=== PATIENT | male | born 1945 | race Caucasian/White ===

== ENCOUNTER 2021-01-02 07:30 | Inpatient (IN) | payer BC ==
[2020-12-26 12:25] LABS: BASOPHILS % (AUTO) 0.3 % (0-1); EOSINOPHILS # (AUTO) 0.1 X10'3 (0-0.9); EOSINOPHILS % (AUTO) 1.9 % (0-6); LYMPHOCYTES # (AUTO) 0.8 X10'3 (1.1-4.8); LYMPHOCYTES % (AUTO) 12.8 % (21-51); MEAN CORPUSCULAR HEMOGLOBIN 31.5 PG (27.0-31.0); MEAN CORPUSCULAR HGB CONC 32.5 g/dL (33.0-36.5); MEAN PLATELET VOLUME 9.6 FL (7.4-10.4); MONOCYTES # (AUTO) 0.9 X10'3 (0-0.9); MONOCYTES % (AUTO) 14.1 % (2-12); NEUTROPHILS # (AUTO) 4.7 X10'3 (1.8-7.7); NEUTROPHILS % (AUTO) 70.9 % (42-75); PRE OP HEMATOCRIT 46.3 % (42.0-52.0); PRE OP PLATELET COUNT 187 X10'3 (140-440); RED BLOOD COUNT 4.77 X10'6 (4.70-6.10); RED CELL DISTRIBUTION WIDTH 14.6 % (11.5-14.5)
[2020-12-26 12:34] LABS: PRE OP INR 1.1 INR; PRE OP PROTIME 11.4 SECONDS (9.0-12.0)
[2020-12-26 12:39] LABS: ALBUMIN 3.6 G/DL (3.4-5.0); ALBUMIN/GLOBULIN RATIO 0.9 (1.1-1.5); ALKALINE PHOSPHATASE 102 IU/L (46-116); BLOOD UREA NITROGEN 19 MG/DL (7-18); BUN/CREATININE RATIO 17.3 (5.4-32.0); CALCIUM 9.4 MG/DL (8.5-10.1); CHLORIDE 105 MMOL/L (99-107); PRE OP ALT 16 U/L (30-65); PRE OP ANION GAP 6 (8-16); PRE OP AST 17 U/L (10-37); PRE OP BILIRUB, TOTAL 0.7 MG/DL (0.0-1.0); PRE OP GLUCOSE 93 MG/DL (70-104); PRE OP POTASSIUM 4.3 MMOL/L (3.4-5.1); PRE OP SODIUM 141 MMOL/L (135-145); TOTAL CARBON DIOXIDE 30.5 MMOL/L (24-32); TOTAL PROTEIN 7.5 G/DL (6.4-8.2); eGFR 65 ML/MIN
[~2021-01-02] VITALS: Ht 175.3 cm; Wt 136.1 kg
[~2021-01-02 07:30] MED LIST: ALBU8HFA PO; APIX5TAB3 PO; CELE-193 PO; DIGO125T PO; METO200T49 PO; OMEP20TA23 PO; POTA10CA44 PO; ROSU20TA2 PO; VALS160T2 PO
[2021-01-02] MEDS ORDERED: FURO40TA4 PO (10:49)
[2021-01-03] VITALS (18 sets, daily range): BP systolic 121–196; BP diastolic 67–113
[2021-01-03] MEDS ORDERED: ringers solution, lacted 1,000 ML IV SCH ×2 (05:00→09:20)
[2021-01-03] MEDS ORDERED: ceFAZolin inj. 3,000 MG in normal saline 100ml IV soln 100 ML IV ONE (05:30)
[2021-01-03] MEDS ORDERED: DOCUMENT DATE & TIME OF BETA-BLOCKER PO ONE (05:30)
[2021-01-03] MEDS ORDERED: vancomycin 1,500 MG in NS 300ml IV soln IV ONE (05:30)
[2021-01-03] MEDS ORDERED: famotidine 20mg tablet PO ONE (05:30)
[2021-01-03] MEDS ORDERED: albuterol 2.5 MG/3 ML nebule NEB ONE (09:05)
[2021-01-03] MEDS ORDERED: meperidine/PF 25mg/ml syringe IV PRN ×3 (09:20)
[2021-01-03] MEDS ORDERED: proCHLORperazine 10 MG/2 ml inj IV PRN (09:20)
[2021-01-03] MEDS ORDERED: morphine 2 MG/ML inj. syringe IV PRN (09:20)
[2021-01-03] MEDS ORDERED: morphine 4 MG/ML inj SYRINge IV PRN (09:20)
[2021-01-03] MEDS ORDERED: ondansetron/PF 4mg/2ml inj IV PRN ×2 (09:20→14:10)
[2021-01-03] MEDS ORDERED: MIDAZolam 1 MG/ML 5ML VIAL ONE (09:56)
[2021-01-03] MEDS ORDERED: fentaNYL/PF 50MCG/1 ML 2ML syringe ONE (09:56)
[2021-01-03] MEDS ORDERED: ROPIVAcaine 0.5% (5mg/ml) 30ml vial ONE (10:00)
[2021-01-03] MEDS ORDERED: ketorolac trometh. 30mg/ml inj. ONE (10:00)
[2021-01-03] MEDS ORDERED: diphenhydrAMINE 50 mg/ml inj ONE (10:52)
[2021-01-03] MEDS ORDERED: propofol inj 20 ML IV ONE (11:47)
[2021-01-03] MEDS ORDERED: phenylephrine 10mg/ml inj. ONE (12:19)
[2021-01-03] MEDS ORDERED: metoprolol tartrate 1mg/ml inj IV ONE (12:19)
[2021-01-03] MEDS ORDERED: ROPIVAcaine 0.2%/PF PUMP/bolus 545 ML ADDCANAL SCH (13:40)
[2021-01-03] MEDS ORDERED: ROPIVAcaine 0.2% (10 MG/5 ML) BOLUS INJECTION ADDCANAL PRN (13:40)
[2021-01-03] MEDS ORDERED: diphenhydrAMINE 25mg capsule PO PRN ×2 (14:10)
[2021-01-03] MEDS ORDERED: HYDROmorphone inj. 0.5 MG/0.5 ML DISP.SYRIN IV PRN (14:10)
[2021-01-03] MEDS ORDERED: HYDROmorphone 1 mg/ml syringe IV PRN (14:10)
[2021-01-03] MEDS ORDERED: bisacodyl 10mg suppository rectal RC PRN (14:10)
[2021-01-03] MEDS ORDERED: acetaminophen 325mg tablet PO PRN (14:10)
[2021-01-03] MEDS: potassium cl 20mEq in 1/2 NS 1,000 ML IV SCH (14:10)
--- NOTE | 2021-01-03 14:25 | NUR ---
ADMITTED TO PACU FROM OR ACCOMPANIED BY ANESTHESIA. INTIAL PHYSICAL ASSESSMENT DONE AND RECORDED. REPORT RECEIVED FROM ANESTHESIA.
--- NOTE | 2021-01-03 15:10 | NUR ---
Received report from VELIA Read in recovery. awaiting patient arrival.
--- NOTE | 2021-01-03 15:15 | NUR ---
PACU DISCHARGE CRITERIA MET, REPORT GIVEN TO FLOOR. DENIES PAIN OR DISCOMFORT, TRANSFERRED TO ROOM IN STABLE GOOD CONDITION. SURGICAL SITE DRESSING NOTED TO BE SATURATED ON ARRIVAL TO FLOOR. DR DIEHL CONTACTED ORDERS TO CHANGE DRESSING. DRESSING TAKE DOWN TO INCISIONAL SITE, CONSTANT WEEPING OF BLOOD FROM INCISION. REDRESSED WITH ABD AND ISLAND DRESSING, MORE ABD'S PLACED ON TOP OF ISLAND DRESSING AND SECURED WITH CHARLES WRAP. HAND OFF TO GRZEGORZ GUNN. DR DIEHL UPDATED
--- NOTE | 2021-01-03 15:46 | NUR ---
Patient arrived to the floor. BP increased. His dressing was saturated with fresh blood. installation drafter called Zhen he said to take down dressing and redress. This was completed, patients dressing is clean dry and intact. will continue to monitor for changes.
--- NOTE | 2021-01-03 16:27 | NUR ---
PAGER ID: [phone] MESSAGE: Karen Alonso1B. Fontaine [phone]
[2021-01-03] MEDS ORDERED: diltiazem 5mg/ml 5ml inj. IV ONE (16:40)
--- NOTE | 2021-01-03 16:46 | NUR ---
Acting as resource i have assumed patient care and sent Mounika GUNN on a break.
[2021-01-03] MEDS: oxyCODONE IR 5mg (immed. release) tablet PO PRN (16:58)
--- NOTE | 2021-01-03 17:19 | NUR ---
Received patient report from VELIA Skinner. Awaiting patient arrival to room 3616Y.
--- NOTE | 2021-01-03 17:20 | NUR ---
gave report to VELIA Adame. gathering patients belongings and transferring him to room 8969
--- NOTE | 2021-01-03 17:42 | NUR ---
Patient transferred to room 3027A. All belongings transferred with patient. Receiving RN's Wendi and Max at bedside. Patients dressing clean dry intact, OnQ set at 8.
--- NOTE | 2021-01-03 18:00 | NUR ---
Patient in room PCU 3027. I have received report from gayla alguna and had the opportunity to ask questions and assume patient care.
[2021-01-03] MEDS: ceFAZolin/D5W- 1GM premix 50 ML IV SCH (18:07)
[2021-01-03] MEDS: diltiazem-NS 100mg/100ml 100 ML IV PRN (18:08)
--- NOTE | 2021-01-03 18:32 | NUR ---
Orders for chest xray, echocardiogram, 40mg IV BID of lasix put in per Dr. Nguyen.
--- NOTE | 2021-01-03 18:33 | NUR ---
Problems reprioritized. Patient report given, questions answered & plan of care reviewed with VELIA Narayan. Patient stable at transfer of care. Cardizem gtt started and cardizem push given prior to transfer of care.
--- NOTE | 2021-01-03 18:48 | NUR ---
Orientee Medication Administration: For this medication-pass time frame, all medication were reviewed, dispensed, administered and documented per hospital policy by VELIA Sierra.
--- NOTE | 2021-01-03 18:48 | NUR ---
Orientee documentation: I have reviewed and agree with all interventions, assessments performed and documented by VELIA Sierra.
[2021-01-03] MEDS: apixaban 5mg tablet PO SCH (20:00)
[2021-01-03] MEDS ORDERED: vancomycin/NS 1 GM ADD-VANTAGE 250 ML IV SCH (20:00)
[2021-01-03] MEDS: sennosides 8.6mg tablet PO SCH (21:00)
[2021-01-03] MEDS: furosemide 40mg/4ml inj IV SCH (21:28)
[2021-01-03] MEDS: atorvastatin 20mg tablet PO SCH (21:30)
[2021-01-03] MEDS: losartan 50mg tablet PO SCH (21:30)
[2021-01-03] MEDS: acetaminophen 325mg tablet PO SCH (21:31)
[2021-01-03] MEDS: celeCOXIB 100mg capsule PO SCH (21:31)
[2021-01-03] MEDS: metoprolol succinate 25mg (24-HOUR) SR. Tablet PO SCH (21:32)
[2021-01-04] VITALS (11 sets, daily range): BP systolic 115–139; BP diastolic 64–115
[2021-01-04] MEDS: ceFAZolin/D5W- 1GM premix 50 ML IV SCH (00:03)
--- NOTE | 2021-01-04 00:18 | NUR ---
ekg was done with troponins, pt did not have any symptoms
--- NOTE | 2021-01-04 01:15 | NUR ---
pt attempted to get out of bed. rn stopped pt and repositioned pt in bed and put bed alarm. pt woke up and wanted to use the bathroom and forgot he had a wright in
[2021-01-04] MEDS: acetaminophen 325mg tablet PO SCH ×4 (01:21→23:10)
[2021-01-04] MEDS: potassium cl 20mEq in 1/2 NS 1,000 ML IV SCH (03:05)
[2021-01-04 03:27] LABS: BASOPHILS % (AUTO) 0 % (0-1); EOSINOPHILS % (AUTO) 0 % (0-6); HEMATOCRIT 32.2 % (42.0-52.0); HEMOGLOBIN 10.6 g/dl (14.0-17.9); LYMPHOCYTES # (AUTO) 0.3 X10'3 (1.1-4.8); MEAN CORPUSCULAR HEMOGLOBIN 32.1 PG (27.0-31.0); MEAN CORPUSCULAR HGB CONC 33.1 g/dL (33.0-36.5); MEAN CORPUSCULAR VOLUME 96.9 FL (78-98); MEAN PLATELET VOLUME 9.2 FL (7.4-10.4); MONOCYTES # (AUTO) 1.5 X10'3 (0-0.9); MONOCYTES % (AUTO) 13.8 % (2-12); NEUTROPHILS # (AUTO) 8.8 X10'3 (1.8-7.7); NEUTROPHILS % (AUTO) 83.2 % (42-75); PLATELET COUNT 149 X10'3 (140-440); RED BLOOD COUNT 3.32 X10'6 (4.70-6.10); RED CELL DISTRIBUTION WIDTH 14.7 % (11.5-14.5); WHITE BLOOD COUNT 10.6 X10'3 (4.5-11.0)
[2021-01-04] MEDS: oxyCODONE IR 5mg (immed. release) tablet PO PRN ×2 (03:33→11:23)
[2021-01-04] MEDS: diltiazem-NS 100mg/100ml 100 ML IV PRN (03:34)
[2021-01-04 03:39] LABS: ALBUMIN 2.5 G/DL (3.4-5.0); ANION GAP 7 (8-16); BLOOD UREA NITROGEN 14 MG/DL (7-18); BUN/CREATININE RATIO 13.3 (5.4-32.0); CALCIUM 8.1 MG/DL (8.5-10.1); CHLORIDE 105 MMOL/L (99-107); CREATININE 1.05 MG/DL (0.60-1.10); GLUCOSE 116 MG/DL (70-104); POTASSIUM 4.9 MMOL/L (3.5-5.1); SODIUM 140 MMOL/L (135-145); TOTAL CARBON DIOXIDE 28.4 MMOL/L (24-32); eGFR 69 ML/MIN
--- NOTE | 2021-01-04 05:59 | NUR ---
Problems reprioritized. Patient report given, questions answered & plan of care reviewed with gayla laguna.
--- NOTE | 2021-01-04 06:14 | NUR ---
Problems reprioritized. Patient report given, questions answered & plan of care reviewed with kiet laguna.
--- NOTE | 2021-01-04 06:37 | NUR ---
Patient in room U 3027. I have received report from VELIA Narayan and had the opportunity to ask questions and assume patient care. Patient awake in bed and in no acute distress.
[2021-01-04] MEDS: apixaban 5mg tablet PO SCH ×2 (07:48→23:10)
[2021-01-04] MEDS: potassium Cl 20 mEq SR tablet PO SCH (07:48)
[2021-01-04] MEDS: celeCOXIB 100mg capsule PO SCH ×2 (07:49→23:10)
[2021-01-04] MEDS: pantoprazole 40mg Tablet.DR PO SCH (07:49)
[2021-01-04] MEDS: furosemide 40mg/4ml inj IV SCH (07:51)
[2021-01-04] MEDS ORDERED: furosemide 40mg tablet PO SCH (08:00)
[2021-01-04] MEDS ORDERED: digoxin 125mcg (0.125mg) tablet PO SCH (08:00)
[2021-01-04] MEDS ORDERED: iohexol 350MG/ML 100ml bottle IV ONE (09:29)
[2021-01-04] MEDS ORDERED: normal saline 1000ml 1,000 ML IV SCH (09:50)
[2021-01-04] MEDS: ROPIVAcaine 0.2%/PF PUMP/bolus 545 ML ADDCANAL SCH (11:29)
[2021-01-04] MEDS ORDERED: amiodarone 200mg tablet PO SCH (11:30)
--- NOTE | 2021-01-04 11:32 | NUR ---
Orders for amiodarone 400mg BID first dose now, stop cardizem gtt two hours after administration of PO amiodarone, and social services director consult put in per Dr. Nguyen.
--- NOTE | 2021-01-04 11:48 | NUR ---
Joint Surgery Consult: Pt s/p R knee surgery this admit and seen by RD for written/verbal high protein ed w/ RD contact information provided. Pt reports good appetite and requests yogurt TIDWM; dietary notified. RD encouraged pt to contact dietitian's office if further questions/concerns. Addendum: 01/04/21 at [address] Amended: Links added.
[2021-01-04 13:22] LABS: HEMATOCRIT 32.1 % (42.0-52.0); HEMOGLOBIN 10.6 g/dl (14.0-17.9); MEAN CORPUSCULAR HEMOGLOBIN 32.4 PG (27.0-31.0); MEAN CORPUSCULAR VOLUME 98.2 FL (78-98); MEAN PLATELET VOLUME 9.4 FL (7.4-10.4); PLATELET COUNT 162 X10'3 (140-440); RED BLOOD COUNT 3.26 X10'6 (4.70-6.10); RED CELL DISTRIBUTION WIDTH 14.6 % (11.5-14.5); WHITE BLOOD COUNT 9.2 X10'3 (4.5-11.0)
--- NOTE | 2021-01-04 14:47 | NUR ---
Paged Dr. Nguyen regarding patient being agitated. PAGER ID: [phone] MESSAGE: [id number]. Tino Almanzar. Patient becoming aggressive. May I order ativan? Thank you. gayla GUNN x [phone] Addendum: 01/04/21 at 1448 by Gayla Maldonado RN Dr. Nguyen called back and gave orders for haldol and ativan.
[2021-01-04] MEDS ORDERED: haloperidol lactate 5mg/ml inj IM ONE (14:50)
[2021-01-04] MEDS: LORazepam 2 mg/ml vial IV PRN (16:33)
--- NOTE | 2021-01-04 16:43 | NUR ---
orientee documentation: I have reviewed and agree with all interventions, assessments performed and documented by VELIA Tyler.
--- NOTE | 2021-01-04 16:44 | NUR ---
Orientee Medication Administration: For this medication-pass time frame, all medication were reviewed, dispensed, administered and documented per hospital policy by VELIA Tyler.
--- NOTE | 2021-01-04 17:19 | NUR ---
Paged Dr. Nguyen regarding patients heart rate trending up PAGER ID: [phone] MESSAGE: [id number]. Tino Almanzar. Patient heart rate trending back up into 130s-140s after turning off cardizem gtt. Would you like me to restart gtt? Thank you. Wendi GUNN x [phone] Addendum: 01/04/21 at 1722 by Wendi Maldonado RN Dr. Nguyen called back and will start patient on amiodarone gtt.
[2021-01-04] MEDS ORDERED: amiodarone 150mg/dext, iso-os 100 ML IV ONE (17:45)
--- NOTE | 2021-01-04 18:00 | NUR ---
Paged Dr. Nguyen PAGER ID: [phone] MESSAGE: RE Yohan Jiménez 3015 A, Patient is combative and restless attempting to get out of bed pulled out an IV line. could we get an order for restraint's? Thank you. VELIA Tyler Tele ext [phone]
--- NOTE | 2021-01-04 18:24 | NUR ---
Problems reprioritized. Patient report given, questions answered & plan of care reviewed with VELIA Mcmullen. Patient stable at transfer of care.
--- NOTE | 2021-01-04 18:43 | NUR ---
Patient in room PCU 3012. I have received report from Wendi GUNN and Jayson GUNN and had the opportunity to ask questions and assume patient care.
--- NOTE | 2021-01-04 19:16 | NUR ---
Doctor paged for restraints PAGER ID: [phone] MESSAGE: Re: Tino Almanzar 75M rm [id number] here for total knee replacement. Patient has become increasing agitated and pulling at lines despite Ativan. May we have an order for restraints? Thank you. Kemi Castaneda.
--- NOTE | 2021-01-04 20:48 | NUR ---
Doctor Paged PAGER ID: [phone] MESSAGE: Re: Tino Almanzar 75M rm [id number]. Total knee replacement. Pt confused & agitated. R leg reddened & swollen. Pt SOB using abdominal muscles. HR 120-130 Afib, BP: 125/72, SpO2 96% on 2L NC, RR 22-29. Pt is clammy. Please call me? Kemi [phone]
--- NOTE | 2021-01-04 21:07 | NUR ---
Paged respiratory ABG and BiPap needed stat rm [id number] Thank you
--- NOTE | 2021-01-04 21:07 | NUR ---
Spoke to Dr. Avila about patient's condition, ordered STAT ABG, CMP/CBC, chest luis alberto, and BiPap.
[2021-01-04 21:28] LABS: ABG BASE EXCESS -1.1 mmol/L (-2.0-2.0); ABG HCO3 25.8 mmol/L (22.0-26.0); ABG OXYGEN SATURATION 92.7 % (94-97); ABG PCO2 (T) 53.8 mmHg (35.0-48.0); ABG PO2 (T) 68.1 mmHg (75.0-100.0); ALLEN'S TEST Modified; FCOHb 0.5 % (0.0-3.9); FLOW 2 L/min; FMetHb 0.3 % (0.0-1.5); PATIENT TEMPERATURE 36.9
--- NOTE | 2021-01-04 21:47 | NUR ---
Page Doctor PAGER ID: [phone] MESSAGE: Re: Tino Almanzar 75M rm [id number]. ABG have resulted. CXR completed/pending and CBC/CMP pending. Pt is now on BiPap. Kemi [phone].
[2021-01-04 22:03] LABS: BASOPHILS # (AUTO) 0.1 X10'3 (0-0.2); BASOPHILS % (AUTO) 0.3 % (0-1); EOSINOPHILS # (AUTO) 0.2 X10'3 (0-0.9); EOSINOPHILS % (AUTO) 1.1 % (0-6); HEMATOCRIT 29.6 % (42.0-52.0); HEMOGLOBIN 9.5 g/dl (14.0-17.9); LYMPHOCYTES # (AUTO) 0.4 X10'3 (1.1-4.8); LYMPHOCYTES % (AUTO) 2.5 % (21-51); MEAN CORPUSCULAR HEMOGLOBIN 32.3 PG (27.0-31.0); MEAN CORPUSCULAR HGB CONC 32.3 g/dL (33.0-36.5); MEAN CORPUSCULAR VOLUME 100.2 FL (78-98); MEAN PLATELET VOLUME 8.8 FL (7.4-10.4); MONOCYTES # (AUTO) 2.7 X10'3 (0-0.9); MONOCYTES % (AUTO) 17.1 % (2-12); NEUTROPHILS # (AUTO) 12.4 X10'3 (1.8-7.7); PLATELET COUNT 145 X10'3 (140-440); RED BLOOD COUNT 2.95 X10'6 (4.70-6.10); RED CELL DISTRIBUTION WIDTH 14.9 % (11.5-14.5); WHITE BLOOD COUNT 15.7 X10'3 (4.5-11.0)
[2021-01-04 22:09] LABS: ALANINE AMINOTRANSFERASE 11 U/L (12-78); ALBUMIN 2.6 G/DL (3.4-5.0); ALBUMIN/GLOBULIN RATIO 0.8 (1.1-1.5); ALKALINE PHOSPHATASE 63 IU/L (46-116); ANION GAP 6 (8-16); ASPARTATE AMINO TRANSFERASE 20 U/L (10-37); BILIRUBIN,TOTAL 0.7 MG/DL (0.1-1.0); BLOOD UREA NITROGEN 22 MG/DL (7-18); BUN/CREATININE RATIO 15.6 (5.4-32.0); CALCIUM 8.6 MG/DL (8.5-10.1); CHLORIDE 106 MMOL/L (99-107); CREATININE 1.41 MG/DL (0.60-1.10); GLUCOSE 97 MG/DL (70-104); POTASSIUM 5.1 MMOL/L (3.5-5.1); SODIUM 140 MMOL/L (135-145); TOTAL CARBON DIOXIDE 28.5 MMOL/L (24-32); TOTAL PROTEIN 5.7 G/DL (6.4-8.2); eGFR 49 ML/MIN
[2021-01-04] MEDS: amiodarone/D5 360MG/200ML BAG 200 ML IV SCH (22:23)
[2021-01-04 22:29] LABS: TOTAL CELLS COUNTED 100
--- NOTE | 2021-01-04 22:29 | NUR ---
Paged Doctor regarding PO meds PAGER ID: [phone] MESSAGE: Re: Tino Almanzar 75M [id number]. Now on BiPap, still confused. Pt has several PO meds due tonight, Eliquis, Toprol, Cozaar, Lipitor, & celebrex. Are there IV/SQ alternatives for these medications we can switch to? Kemi [phone].
[2021-01-04 22:30] LABS: PLATELET ESTIMATE NORMAL
[2021-01-04] MEDS ORDERED: methylPREDNISolone sod succ 125mg/2ml vial IV ONE (22:40)
[2021-01-04] MEDS ORDERED: ipratropium/albuterol 3ml nebule NEB PRN (22:40)
[2021-01-04] MEDS ORDERED: vancomycin/NS 1 GM ADD-VANTAGE 250 ML IV SCH (22:46)
[2021-01-04] MEDS: ipratropium/albuterol 3ml nebule NEB SCH (23:03)
--- NOTE | 2021-01-04 23:04 | NUR ---
Spoke to Dr. Avila regarding PO medications, Dr. Avila does not want to switch to alternative routes of administration. Evening medications non-admin, patient not able to swallow due to BiPap and confusion. Concerned for risk of aspiration.
[2021-01-04] MEDS: losartan 50mg tablet PO SCH (23:10)
[2021-01-04] MEDS: metoprolol succinate 25mg (24-HOUR) SR. Tablet PO SCH (23:10)
[2021-01-04] MEDS: atorvastatin 20mg tablet PO SCH (23:10)
[2021-01-04] MEDS: sennosides 8.6mg tablet PO SCH (23:10)
--- NOTE | 2021-01-04 23:47 | NUR ---
Dr. Nguyen paged regarding blood cultures PAGER ID: [phone] MESSAGE: Re: Tino Almanzar 75M 3012A, here for total right knee. Do you want blood cultures before first dose antibiotic? Kemi [phone]
[2021-01-05] VITALS (9 sets, daily range): BP systolic 106–147; BP diastolic 58–94
--- NOTE | 2021-01-05 00:49 | NUR ---
While repositioning patient, he was found to have jasvir red blood oozing from right knee dressing and onto pillow. Called Dr. Fontaine and he advised a dressing change with pressure dressing and to place wound vac canister, machine, and sponges at the bedside and he will apply wound vac in the morning. Old dressing was saturated with blood. 2 gauze containers were placed against wound, held in place with island dressing. 2 more gauze containers were used on top of the island dressing and secured with foam tape. Tape was pulled tight to create pressure. Patient has strong pedal pulses on right and left feet. Right leg is reddened and swollen.
[2021-01-05 02:00] LABS: BASOPHILS % (AUTO) 0.3 % (0-1); EOSINOPHILS # (AUTO) 0.1 X10'3 (0-0.9); EOSINOPHILS % (AUTO) 0.8 % (0-6); HEMATOCRIT 27.5 % (42.0-52.0); LYMPHOCYTES # (AUTO) 0.2 X10'3 (1.1-4.8); LYMPHOCYTES % (AUTO) 1.2 % (21-51); MEAN CORPUSCULAR HEMOGLOBIN 32.2 PG (27.0-31.0); MEAN CORPUSCULAR HGB CONC 32.8 g/dL (33.0-36.5); MEAN CORPUSCULAR VOLUME 98.2 FL (78-98); MEAN PLATELET VOLUME 8.8 FL (7.4-10.4); MONOCYTES # (AUTO) 1.3 X10'3 (0-0.9); MONOCYTES % (AUTO) 9.9 % (2-12); NEUTROPHILS # (AUTO) 11.3 X10'3 (1.8-7.7); NEUTROPHILS % (AUTO) 87.8 % (42-75); PLATELET COUNT 144 X10'3 (140-440); RED BLOOD COUNT 2.81 X10'6 (4.70-6.10); RED CELL DISTRIBUTION WIDTH 14.9 % (11.5-14.5); WHITE BLOOD COUNT 12.8 X10'3 (4.5-11.0)
[2021-01-05] MEDS: acetaminophen 325mg tablet PO SCH ×3 (02:00→14:00)
[2021-01-05] MEDS: methylPREDNISolone sod succ/PF 40mg inj. IV SCH ×4 (02:18→21:09)
[2021-01-05 02:22] LABS: ALANINE AMINOTRANSFERASE 16 U/L (12-78); ALBUMIN 2.5 G/DL (3.4-5.0); ALBUMIN/GLOBULIN RATIO 0.8 (1.1-1.5); ALKALINE PHOSPHATASE 65 IU/L (46-116); ANION GAP 7 (8-16); ASPARTATE AMINO TRANSFERASE 22 U/L (10-37); BILIRUBIN,TOTAL 0.6 MG/DL (0.1-1.0); BLOOD UREA NITROGEN 25 MG/DL (7-18); BUN/CREATININE RATIO 17.4 (5.4-32.0); CHLORIDE 105 MMOL/L (99-107); CREATININE 1.44 MG/DL (0.60-1.10); GLUCOSE 110 MG/DL (70-104); PHOSPHORUS 3.9 MG/DL (2.3-4.5); POTASSIUM 5.1 MMOL/L (3.5-5.1); SODIUM 141 MMOL/L (135-145); TOTAL CARBON DIOXIDE 29.1 MMOL/L (24-32); TOTAL PROTEIN 5.5 G/DL (6.4-8.2); eGFR 48 ML/MIN
[2021-01-05] MEDS: piperacillin/tazo 3.375gm/50ml 50 ML IV SCH ×3 (02:22→16:13)
[2021-01-05] MEDS: amiodarone/D5 360MG/200ML BAG 200 ML IV SCH ×4 (03:27→18:30)
[2021-01-05] MEDS: ipratropium/albuterol 3ml nebule NEB SCH ×6 (03:39→23:00)
--- NOTE | 2021-01-05 06:33 | NUR ---
Problems reprioritized. Patient report given, questions answered & plan of care reviewed with Neeraj GUNN.
[2021-01-05 08:22] LABS: ABG BASE EXCESS -2.5 mmol/L (-2.0-2.0); ABG HCO3 23.8 mmol/L (22.0-26.0); ABG OXYGEN SATURATION 89.1 % (94-97); ABG PCO2 (T) 47.6 mmHg (35.0-48.0); ABG PO2 (T) 57.7 mmHg (75.0-100.0); ALLEN'S TEST POSITIVE; FCOHb 0.2 % (0.0-3.9); FMetHb 0.1 % (0.0-1.5); FO2Hb 88.8 % (94-97); TOTAL HEMOGLOBIN 10.2 G/dl (14.0-18.0)
[2021-01-05] MEDS: potassium Cl 20 mEq SR tablet PO SCH (08:49)
[2021-01-05] MEDS: celeCOXIB 100mg capsule PO SCH ×2 (08:49→21:06)
[2021-01-05] MEDS: apixaban 5mg tablet PO SCH ×2 (08:50→21:07)
[2021-01-05] MEDS: pantoprazole 40mg Tablet.DR PO SCH (08:57)
[2021-01-05] MEDS: ROPIVAcaine 0.2%/PF PUMP/bolus 545 ML ADDCANAL SCH (13:10)
[2021-01-05] MEDS ORDERED: ondansetron 4mg rapidly disintigrating tab PO PRN (14:15)
[2021-01-05] MEDS: vancomycin/NS 1 GM ADD-VANTAGE 250 ML IV SCH (15:30)
--- NOTE | 2021-01-05 18:30 | NUR ---
Patient in room PCU 3012. I have received report from Neeraj GUNN and had the opportunity to ask questions and assume patient care.
[2021-01-05] MEDS: sennosides 8.6mg tablet PO SCH (21:00)
[2021-01-05] MEDS: lactobacillus rhamnosus 10,000 MMU CELLS/CAPSULE PO SCH (21:07)
[2021-01-05] MEDS: losartan 50mg tablet PO SCH (21:07)
[2021-01-05] MEDS: atorvastatin 20mg tablet PO SCH (21:07)
[2021-01-05] MEDS: metoprolol succinate 25mg (24-HOUR) SR. Tablet PO SCH (21:08)
[2021-01-05] MEDS: furosemide 40mg/4ml inj IV SCH (21:09)
[2021-01-05] MEDS: acetaminophen 325mg tablet PO PRN (21:09)
[2021-01-06] VITALS (7 sets, daily range): BP systolic 110–125; BP diastolic 55–88
[2021-01-06] MEDS: piperacillin/tazo 3.375gm/50ml 50 ML IV SCH ×3 (00:06→16:19)
[2021-01-06] MEDS: methylPREDNISolone sod succ/PF 40mg inj. IV SCH ×4 (02:21→20:22)
[2021-01-06] MEDS: vancomycin/NS 1 GM ADD-VANTAGE 250 ML IV SCH ×2 (02:25→14:52)
[2021-01-06] MEDS: ipratropium/albuterol 3ml nebule NEB SCH ×6 (03:00→23:00)
[2021-01-06] MEDS: amiodarone/D5 360MG/200ML BAG 200 ML IV SCH ×4 (03:10→19:16)
[2021-01-06] MEDS: acetaminophen 325mg tablet PO PRN (04:34)
--- NOTE | 2021-01-06 06:30 | NUR ---
Problems reprioritized. Patient report given, questions answered & plan of care reviewed with Neeraj GUNN.
[2021-01-06 06:39] LABS: BASOPHILS % (AUTO) 0 % (0-1); EOSINOPHILS % (AUTO) 0 % (0-6); HEMATOCRIT 26.5 % (42.0-52.0); HEMOGLOBIN 8.8 g/dl (14.0-17.9); LYMPHOCYTES # (AUTO) 0.3 X10'3 (1.1-4.8); LYMPHOCYTES % (AUTO) 1.7 % (21-51); MEAN CORPUSCULAR HEMOGLOBIN 32.1 PG (27.0-31.0); MEAN CORPUSCULAR HGB CONC 33.1 g/dL (33.0-36.5); MEAN PLATELET VOLUME 8.8 FL (7.4-10.4); MONOCYTES # (AUTO) 1.1 X10'3 (0-0.9); MONOCYTES % (AUTO) 6.6 % (2-12); NEUTROPHILS # (AUTO) 15.2 X10'3 (1.8-7.7); NEUTROPHILS % (AUTO) 91.7 % (42-75); PLATELET COUNT 165 X10'3 (140-440); RED BLOOD COUNT 2.74 X10'6 (4.70-6.10); RED CELL DISTRIBUTION WIDTH 14.9 % (11.5-14.5); WHITE BLOOD COUNT 16.6 X10'3 (4.5-11.0)
[2021-01-06 07:10] LABS: ALANINE AMINOTRANSFERASE 16 U/L (12-78); ALBUMIN 2.3 G/DL (3.4-5.0); ALBUMIN/GLOBULIN RATIO 0.7 (1.1-1.5); ALKALINE PHOSPHATASE 65 IU/L (46-116); ANION GAP 5 (8-16); ASPARTATE AMINO TRANSFERASE 17 U/L (10-37); BILIRUBIN,TOTAL 0.5 MG/DL (0.1-1.0); BLOOD UREA NITROGEN 38 MG/DL (7-18); BUN/CREATININE RATIO 23.8 (5.4-32.0); CALCIUM 8.5 MG/DL (8.5-10.1); CHLORIDE 103 MMOL/L (99-107); GLUCOSE 138 MG/DL (70-104); MAGNESIUM 2.3 MG/DL (1.5-2.4); PHOSPHORUS 4.2 MG/DL (2.3-4.5); POTASSIUM 5.2 MMOL/L (3.5-5.1); SODIUM 137 MMOL/L (135-145); TOTAL CARBON DIOXIDE 28.6 MMOL/L (24-32); TOTAL PROTEIN 5.8 G/DL (6.4-8.2); eGFR 42 ML/MIN
[2021-01-06] MEDS: potassium Cl 20 mEq SR tablet PO SCH (07:55)
[2021-01-06] MEDS: pantoprazole 40mg Tablet.DR PO SCH (07:55)
[2021-01-06] MEDS: lactobacillus rhamnosus 10,000 MMU CELLS/CAPSULE PO SCH ×2 (07:55→20:24)
[2021-01-06] MEDS: apixaban 5mg tablet PO SCH ×2 (07:55→20:24)
[2021-01-06] MEDS: furosemide 40mg/4ml inj IV SCH ×2 (07:55→20:22)
[2021-01-06] MEDS: celeCOXIB 100mg capsule PO SCH ×2 (07:55→20:31)
[2021-01-06] MEDS ORDERED: VANCOMYCIN LEVEL IV ONE (13:30)
--- NOTE | 2021-01-06 18:00 | NUR ---
report received from VELIA Pickard.
[2021-01-06] MEDS: sennosides 8.6mg tablet PO SCH (20:23)
[2021-01-06] MEDS: losartan 50mg tablet PO SCH (20:24)
[2021-01-06] MEDS: atorvastatin 20mg tablet PO SCH (20:25)
[2021-01-06] MEDS: metoprolol succinate 25mg (24-HOUR) SR. Tablet PO SCH (20:25)
[2021-01-07] MEDS: piperacillin/tazo 3.375gm/50ml 50 ML IV SCH ×3 (00:26→23:35)
[2021-01-07] MEDS: amiodarone/D5 360MG/200ML BAG 200 ML IV SCH ×2 (01:54→05:55)
[2021-01-07 02:00] VITALS: BP 104/56
[2021-01-07] MEDS: methylPREDNISolone sod succ/PF 40mg inj. IV SCH ×4 (02:29→20:14)
[2021-01-07] MEDS: ipratropium/albuterol 3ml nebule NEB SCH ×6 (03:00→23:20)
[2021-01-07] MEDS: vancomycin/NS 1 GM ADD-VANTAGE 250 ML IV SCH ×2 (03:33→15:12)
[2021-01-07 06:00] VITALS: BP 102/50
[2021-01-07] MEDS: LORazepam 2 mg/ml vial IV PRN (06:04)
--- NOTE | 2021-01-07 06:29 | NUR ---
Paged Dr. Jones PAGER ID: [phone] MESSAGE: Re:Tino Almanzar [id number]. Pt is combative and aggressive. May we have a one time Haldol to give? Please advise, Shruthi GUNN [phone]
--- NOTE | 2021-01-07 06:35 | NUR ---
Patient in room PCU 3012. I have received report from Adarsh GUNN and had the opportunity to ask questions and assume patient care.
[2021-01-07 06:42] LABS: BASOPHILS % (AUTO) 0 % (0-1); EOSINOPHILS % (AUTO) 0 % (0-6); HEMATOCRIT 29.1 % (42.0-52.0); HEMOGLOBIN 9.7 g/dl (14.0-17.9); LYMPHOCYTES # (AUTO) 0.6 X10'3 (1.1-4.8); LYMPHOCYTES % (AUTO) 3.4 % (21-51); MEAN CORPUSCULAR HEMOGLOBIN 32.3 PG (27.0-31.0); MEAN CORPUSCULAR HGB CONC 33.2 g/dL (33.0-36.5); MEAN CORPUSCULAR VOLUME 97.3 FL (78-98); MEAN PLATELET VOLUME 8.3 FL (7.4-10.4); MONOCYTES % (AUTO) 6.1 % (2-12); NEUTROPHILS # (AUTO) 15.1 X10'3 (1.8-7.7); NEUTROPHILS % (AUTO) 90.5 % (42-75); PLATELET COUNT 253 X10'3 (140-440); RED BLOOD COUNT 2.99 X10'6 (4.70-6.10); RED CELL DISTRIBUTION WIDTH 14.9 % (11.5-14.5); WHITE BLOOD COUNT 16.6 X10'3 (4.5-11.0)
[2021-01-07 06:52] LABS: ALANINE AMINOTRANSFERASE 32 U/L (12-78); ALBUMIN 2.5 G/DL (3.4-5.0); ALBUMIN/GLOBULIN RATIO 0.6 (1.1-1.5); ALKALINE PHOSPHATASE 91 IU/L (46-116); ANION GAP 8 (8-16); ASPARTATE AMINO TRANSFERASE 30 U/L (10-37); BILIRUBIN,TOTAL 0.6 MG/DL (0.1-1.0); BLOOD UREA NITROGEN 47 MG/DL (7-18); BUN/CREATININE RATIO 27.5 (5.4-32.0); CHLORIDE 103 MMOL/L (99-107); CREATININE 1.71 MG/DL (0.60-1.10); GLUCOSE 155 MG/DL (70-104); MAGNESIUM 2.4 MG/DL (1.5-2.4); PHOSPHORUS 4.1 MG/DL (2.3-4.5); POTASSIUM 5.1 MMOL/L (3.5-5.1); SODIUM 141 MMOL/L (135-145); TOTAL CARBON DIOXIDE 29.7 MMOL/L (24-32); TOTAL PROTEIN 6.6 G/DL (6.4-8.2); eGFR 39 ML/MIN
--- NOTE | 2021-01-07 07:43 | NUR ---
PAGER ID: [phone] MESSAGE: Re: Tino Almanzar. Room: 301. Pt confused and pulling at lines, same as 2 days ago. Do you want to get ABG? -[facility] #[id number] -Dr. Woods paged concerning Pt's ALOC
[2021-01-07] MEDS: potassium Cl 20 mEq SR tablet PO SCH (08:00)
[2021-01-07 08:22] LABS: ABG BASE EXCESS 1.4 mmol/L (-2.0-2.0); ABG HCO3 31.2 mmol/L (22.0-26.0); ABG OXYGEN SATURATION 99.5 % (94-97); ABG PCO2 (T) 85.4 mmHg (35.0-48.0); ABG PO2 (T) 297.1 mmHg (75.0-100.0); ALLEN'S TEST POSITIVE; FCOHb 0.3 % (0.0-3.9); FLOW 2 L/min; FMetHb 0.4 % (0.0-1.5); FO2Hb 98.8 % (94-97); TOTAL HEMOGLOBIN 9.7 G/dl (14.0-18.0)
--- NOTE | 2021-01-07 09:34 | NUR ---
PAGER ID: [phone] MESSAGE: Re: Tino Almanzar. Room: [facility]. ABG resulted CO2 85. Pt now on bipap. Will get another ABG in one hour. -[facility] #[id number] -Dr. Woods paged concerning ABG results
[2021-01-07] MEDS: furosemide 40mg/4ml inj IV SCH ×2 (10:10→20:14)
[2021-01-07 10:28] LABS: ABG BASE EXCESS 1.1 mmol/L (-2.0-2.0); ABG HCO3 28.4 mmol/L (22.0-26.0); ABG OXYGEN SATURATION 93.5 % (94-97); ALLEN'S TEST POSITIVE; FCOHb 0.3 % (0.0-3.9); FMetHb 0.3 % (0.0-1.5); FO2Hb 92.9 % (94-97); RESPIRATORY RATE 20 b/min; TOTAL HEMOGLOBIN 9.6 G/dl (14.0-18.0)
[2021-01-07 11:00] VITALS: BP 129/48
[2021-01-07] MEDS: lactobacillus rhamnosus 10,000 MMU CELLS/CAPSULE PO SCH ×2 (12:01→20:16)
[2021-01-07] MEDS: pantoprazole 40mg Tablet.DR PO SCH (12:01)
[2021-01-07] MEDS: amiodarone 200mg tablet PO SCH ×2 (12:01→20:16)
[2021-01-07] MEDS: celeCOXIB 100mg capsule PO SCH ×2 (12:01→20:14)
[2021-01-07] MEDS: apixaban 5mg tablet PO SCH ×2 (12:02→20:16)
[2021-01-07 15:00] VITALS: BP 103/62
[2021-01-07 18:00] VITALS: BP 109/61
--- NOTE | 2021-01-07 18:00 | NUR ---
Patient in room PCU 3012. I have received report from VELIA Ochoa and had the opportunity to ask questions and assume patient care.
--- NOTE | 2021-01-07 18:05 | NUR ---
Problems reprioritized. Patient report given, questions answered & plan of care reviewed with Adarsh GUNN.
[2021-01-07] MEDS: atorvastatin 20mg tablet PO SCH (20:15)
[2021-01-07] MEDS: metoprolol succinate 25mg (24-HOUR) SR. Tablet PO SCH (20:15)
[2021-01-07] MEDS: losartan 50mg tablet PO SCH (20:16)
[2021-01-07] MEDS: sennosides 8.6mg tablet PO SCH (20:16)
[2021-01-07 22:00] VITALS: BP 129/66
[2021-01-08 02:00] VITALS: BP 113/82
[2021-01-08] MEDS: methylPREDNISolone sod succ/PF 40mg inj. IV SCH ×4 (02:06→20:32)
[2021-01-08] MEDS: vancomycin/NS 1 GM ADD-VANTAGE 250 ML IV SCH ×2 (02:07→13:50)
[2021-01-08] MEDS: ipratropium/albuterol 3ml nebule NEB SCH ×6 (02:32→23:23)
--- NOTE | 2021-01-08 05:45 | NUR ---
Patient in room PCU 3018b. I have received report from VELIA Benson and had the opportunity to ask questions and assume patient care.
--- NOTE | 2021-01-08 06:17 | NUR ---
Problems reprioritized. Patient report given, questions answered & plan of care reviewed with VELIA Villarreal .
--- NOTE | 2021-01-08 06:30 | NUR ---
Patient in room PCU 3012. I have received report from Magdi GUNN and had the opportunity to ask questions and assume patient care. Patient in no acute distress.
--- NOTE | 2021-01-08 06:34 | NUR ---
Patient in room PCU 3012. I have received report from Adarsh GUNN and had the opportunity to ask questions and assume patient care.
[2021-01-08 07:00] VITALS: BP 109/63
[2021-01-08 07:07] LABS: BASOPHILS % (AUTO) 0 % (0-1); EOSINOPHILS % (AUTO) 0 % (0-6); HEMATOCRIT 27.1 % (42.0-52.0); LYMPHOCYTES # (AUTO) 0.2 X10'3 (1.1-4.8); LYMPHOCYTES % (AUTO) 1.6 % (21-51); MEAN CORPUSCULAR HEMOGLOBIN 32.7 PG (27.0-31.0); MEAN CORPUSCULAR HGB CONC 33.4 g/dL (33.0-36.5); MEAN PLATELET VOLUME 8.4 FL (7.4-10.4); MONOCYTES # (AUTO) 0.6 X10'3 (0-0.9); MONOCYTES % (AUTO) 5.9 % (2-12); NEUTROPHILS # (AUTO) 9.2 X10'3 (1.8-7.7); NEUTROPHILS % (AUTO) 92.5 % (42-75); PLATELET COUNT 245 X10'3 (140-440); RED BLOOD COUNT 2.76 X10'6 (4.70-6.10); RED CELL DISTRIBUTION WIDTH 14.9 % (11.5-14.5)
[2021-01-08 07:13] LABS: ALANINE AMINOTRANSFERASE 39 U/L (12-78); ALBUMIN 2.2 G/DL (3.4-5.0); ALBUMIN/GLOBULIN RATIO 0.6 (1.1-1.5); ALKALINE PHOSPHATASE 77 IU/L (46-116); ANION GAP 3 (8-16); ASPARTATE AMINO TRANSFERASE 35 U/L (10-37); BILIRUBIN,TOTAL 0.6 MG/DL (0.1-1.0); BLOOD UREA NITROGEN 47 MG/DL (7-18); BUN/CREATININE RATIO 32.9 (5.4-32.0); CALCIUM 8.6 MG/DL (8.5-10.1); CHLORIDE 104 MMOL/L (99-107); CREATININE 1.43 MG/DL (0.60-1.10); GLUCOSE 129 MG/DL (70-104); MAGNESIUM 2.4 MG/DL (1.5-2.4); PHOSPHORUS 3.9 MG/DL (2.3-4.5); SODIUM 142 MMOL/L (135-145); TOTAL CARBON DIOXIDE 34.6 MMOL/L (24-32); eGFR 48 ML/MIN
[2021-01-08] MEDS: piperacillin/tazo 3.375gm/50ml 50 ML IV SCH ×2 (07:29→16:59)
[2021-01-08] MEDS: furosemide 40mg/4ml inj IV SCH ×2 (07:29→20:32)
[2021-01-08] MEDS: celeCOXIB 100mg capsule PO SCH ×2 (07:30→20:31)
[2021-01-08] MEDS: amiodarone 200mg tablet PO SCH ×2 (07:30→20:30)
[2021-01-08] MEDS: potassium Cl 20 mEq SR tablet PO SCH (07:30)
[2021-01-08] MEDS: apixaban 5mg tablet PO SCH ×2 (07:30→20:30)
[2021-01-08] MEDS: lactobacillus rhamnosus 10,000 MMU CELLS/CAPSULE PO SCH ×2 (07:30→20:31)
[2021-01-08] MEDS: pantoprazole 40mg Tablet.DR PO SCH (07:31)
[2021-01-08] MEDS: magnesium hydroxide 30ml (MOM) UD suspension PO PRN (09:29)
[2021-01-08] MEDS: oxyCODONE IR 5mg (immed. release) tablet PO PRN ×2 (09:29→17:03)
[2021-01-08 11:00] VITALS: BP 127/75
--- NOTE | 2021-01-08 11:12 | NUR ---
Initial: Pt admit s/p R knee surgery for osteoarthritis developed afib RVR, COPD exacerbation, and metabolic encephalopathy r/t hypercarbia requiring bipap at times post-op per MD note. Pt PO 75-100% avg regular diet; double proteins TIDWM added given pt size/wound healing needs to ensure meeting minimum protein/kcal needs. Dietary notified. LBM 01/06 receiving routine senna and PRN MoM 01/08. No nutrition concerns at this time. Will continue to monitor. Rec: 1. continue regular diet; double eggs WB/double meats BIDLD 2. consider heart healthy diet as medically indicated given hx CHF/HTN, and serum Na 142 w/ +3 edema present 3. routine bowel care 4. weekly wts Addendum: 01/08/21 at [address] Amended: Links added.
[2021-01-08] MEDS: ROPIVAcaine 0.2%/PF PUMP/bolus 545 ML ADDCANAL SCH (13:15)
[2021-01-08] MEDS: acetaminophen 325mg tablet PO PRN (14:43)
[2021-01-08 15:00] VITALS: BP 118/63
--- NOTE | 2021-01-08 17:39 | NUR ---
Orientee documentation: I have reviewed and agree with all interventions, assessments performed and documented by Mariola GUNN.
[2021-01-08 18:00] VITALS: BP 132/72
--- NOTE | 2021-01-08 18:05 | NUR ---
Problems reprioritized. Patient report given, questions answered & plan of care reviewed with Adarsh RN. Patient resting in bed in no acute distress.
--- NOTE | 2021-01-08 18:32 | NUR ---
Patient in room PCU 3012A. I have received report from VELIA Baca and had the opportunity to ask questions and assume patient care.
[2021-01-08] MEDS: metoprolol succinate 25mg (24-HOUR) SR. Tablet PO SCH (20:30)
[2021-01-08] MEDS: sennosides 8.6mg tablet PO SCH (20:31)
[2021-01-08] MEDS: losartan 50mg tablet PO SCH (20:32)
[2021-01-08] MEDS: atorvastatin 20mg tablet PO SCH (20:32)
[2021-01-08 22:00] VITALS: BP 117/65
[2021-01-09] MEDS: piperacillin/tazo 3.375gm/50ml 50 ML IV SCH ×3 (00:04→16:04)
[2021-01-09] MEDS: methylPREDNISolone sod succ/PF 40mg inj. IV SCH ×2 (01:57→08:46)
[2021-01-09] MEDS: vancomycin/NS 1 GM ADD-VANTAGE 250 ML IV SCH (01:57)
[2021-01-09 02:00] VITALS: BP 133/73
[2021-01-09] MEDS: ipratropium/albuterol 3ml nebule NEB SCH ×6 (02:44→22:56)
--- NOTE | 2021-01-09 06:09 | NUR ---
Problems reprioritized. Patient report given, questions answered & plan of care reviewed with VELIA Baca.
[2021-01-09 07:00] VITALS: BP_SYST 117; BP_SYST 126; BP_DIAS 64; BP_DIAS 72
[2021-01-09 07:03] LABS: BASOPHILS % (AUTO) 0 % (0-1); EOSINOPHILS % (AUTO) 0 % (0-6); HEMATOCRIT 30.1 % (42.0-52.0); HEMOGLOBIN 9.9 g/dl (14.0-17.9); LYMPHOCYTES # (AUTO) 0.2 X10'3 (1.1-4.8); LYMPHOCYTES % (AUTO) 2.3 % (21-51); MEAN CORPUSCULAR HEMOGLOBIN 32.2 PG (27.0-31.0); MEAN CORPUSCULAR VOLUME 97.5 FL (78-98); MEAN PLATELET VOLUME 8.7 FL (7.4-10.4); MONOCYTES # (AUTO) 0.7 X10'3 (0-0.9); MONOCYTES % (AUTO) 6.4 % (2-12); NEUTROPHILS # (AUTO) 9.4 X10'3 (1.8-7.7); NEUTROPHILS % (AUTO) 91.3 % (42-75); PLATELET COUNT 242 X10'3 (140-440); RED BLOOD COUNT 3.09 X10'6 (4.70-6.10); RED CELL DISTRIBUTION WIDTH 14.6 % (11.5-14.5); WHITE BLOOD COUNT 10.3 X10'3 (4.5-11.0)
[2021-01-09 07:18] LABS: ALANINE AMINOTRANSFERASE 41 U/L (12-78); ALBUMIN 2.3 G/DL (3.4-5.0); ALBUMIN/GLOBULIN RATIO 0.6 (1.1-1.5); ALKALINE PHOSPHATASE 101 IU/L (46-116); ANION GAP 6 (8-16); ASPARTATE AMINO TRANSFERASE 33 U/L (10-37); BILIRUBIN,TOTAL 0.7 MG/DL (0.1-1.0); BLOOD UREA NITROGEN 53 MG/DL (7-18); BUN/CREATININE RATIO 36.6 (5.4-32.0); CALCIUM 8.9 MG/DL (8.5-10.1); CHLORIDE 101 MMOL/L (99-107); CREATININE 1.45 MG/DL (0.60-1.10); GLUCOSE 140 MG/DL (70-104); MAGNESIUM 2.5 MG/DL (1.5-2.4); PHOSPHORUS 3.1 MG/DL (2.3-4.5); POTASSIUM 5.3 MMOL/L (3.5-5.1); SODIUM 139 MMOL/L (135-145); TOTAL CARBON DIOXIDE 32.4 MMOL/L (24-32); TOTAL PROTEIN 5.9 G/DL (6.4-8.2); eGFR 47 ML/MIN
[2021-01-09] MEDS: furosemide 40mg/4ml inj IV SCH ×2 (08:46→20:15)
[2021-01-09] MEDS: pantoprazole 40mg Tablet.DR PO SCH (08:46)
[2021-01-09] MEDS: celeCOXIB 100mg capsule PO SCH ×2 (08:46→20:11)
[2021-01-09] MEDS: lactobacillus rhamnosus 10,000 MMU CELLS/CAPSULE PO SCH ×2 (08:46→20:10)
[2021-01-09] MEDS: amiodarone 200mg tablet PO SCH ×2 (08:46→20:10)
[2021-01-09] MEDS: apixaban 5mg tablet PO SCH ×2 (08:47→20:10)
[2021-01-09] MEDS: oxyCODONE IR 5mg (immed. release) tablet PO PRN ×2 (09:16→20:09)
--- NOTE | 2021-01-09 09:27 | NUR ---
Page to respiratory for new ABG order due to increased confusion [id number] Yohan. Patient has new order for ABG. Phuong [phone]
[2021-01-09 10:27] LABS: ABG BASE EXCESS 12.7 mmol/L (-2.0-2.0); ABG HCO3 38.6 mmol/L (22.0-26.0); ABG OXYGEN SATURATION 88.9 % (94-97); ABG PCO2 (T) 56.9 mmHg (35.0-48.0); ALLEN'S TEST POSITIVE; FCOHb 0.7 % (0.0-3.9); FLOW 2 L/min; FMetHb 0.3 % (0.0-1.5); TOTAL HEMOGLOBIN 10.6 G/dl (14.0-18.0)
[2021-01-09] MEDS ORDERED: metoprolol succinate 25mg (24-HOUR) SR. Tablet PO ONE (11:10)
[2021-01-09 15:00] VITALS: BP 114/69
[2021-01-09 18:00] VITALS: BP_SYST 111; BP_DIAS 6; BP_DIAS 60
--- NOTE | 2021-01-09 18:07 | NUR ---
Problems reprioritized. Patient report given, questions answered & plan of care reviewed with Adarsh GUNN.
--- NOTE | 2021-01-09 18:10 | NUR ---
Patient in room PCU 3012. I have received report from VELIA Baca and had the opportunity to ask questions and assume patient care.
[2021-01-09] MEDS: atorvastatin 20mg tablet PO SCH (20:09)
[2021-01-09] MEDS: losartan 50mg tablet PO SCH (20:10)
[2021-01-09] MEDS: sennosides 8.6mg tablet PO SCH (20:11)
[2021-01-09] MEDS: metoprolol succinate 25mg (24-HOUR) SR. Tablet PO SCH (20:11)
[2021-01-09] MEDS: magnesium hydroxide 30ml (MOM) UD suspension PO PRN (20:15)
[2021-01-09] MEDS: LORazepam 2 mg/ml vial IV PRN (21:24)
[2021-01-09 22:00] VITALS: BP 90/58
[2021-01-10] MEDS: piperacillin/tazo 3.375gm/50ml 50 ML IV SCH ×4 (00:01→22:03)
[2021-01-10 02:00] VITALS: BP 141/73
[2021-01-10] MEDS: ipratropium/albuterol 3ml nebule NEB SCH ×6 (02:52→22:42)
--- NOTE | 2021-01-10 06:15 | NUR ---
Problems reprioritized. Patient report given, questions answered & plan of care reviewed with VELIA Baca..
[2021-01-10 07:00] VITALS: BP 110/77
[2021-01-10 07:52] LABS: BASOPHILS % (AUTO) 0.3 % (0-1); EOSINOPHILS # (AUTO) 0.4 X10'3 (0-0.9); EOSINOPHILS % (AUTO) 3.5 % (0-6); HEMATOCRIT 29.6 % (42.0-52.0); LYMPHOCYTES # (AUTO) 0.8 X10'3 (1.1-4.8); LYMPHOCYTES % (AUTO) 7.3 % (21-51); MEAN CORPUSCULAR HEMOGLOBIN 32.5 PG (27.0-31.0); MEAN CORPUSCULAR HGB CONC 33.6 g/dL (33.0-36.5); MEAN CORPUSCULAR VOLUME 96.7 FL (78-98); MEAN PLATELET VOLUME 8.3 FL (7.4-10.4); MONOCYTES # (AUTO) 1.3 X10'3 (0-0.9); MONOCYTES % (AUTO) 12.7 % (2-12); NEUTROPHILS # (AUTO) 7.8 X10'3 (1.8-7.7); NEUTROPHILS % (AUTO) 76.2 % (42-75); PLATELET COUNT 289 X10'3 (140-440); RED BLOOD COUNT 3.06 X10'6 (4.70-6.10); RED CELL DISTRIBUTION WIDTH 14.8 % (11.5-14.5); WHITE BLOOD COUNT 10.3 X10'3 (4.5-11.0)
[2021-01-10 08:08] LABS: ALANINE AMINOTRANSFERASE 46 U/L (12-78); ALBUMIN 2.3 G/DL (3.4-5.0); ALBUMIN/GLOBULIN RATIO 0.6 (1.1-1.5); ALKALINE PHOSPHATASE 71 IU/L (46-116); ANION GAP 0 (8-16); ASPARTATE AMINO TRANSFERASE 38 U/L (10-37); BILIRUBIN,TOTAL 0.7 MG/DL (0.1-1.0); BLOOD UREA NITROGEN 55 MG/DL (7-18); BUN/CREATININE RATIO 36.2 (5.4-32.0); CALCIUM 8.9 MG/DL (8.5-10.1); CHLORIDE 104 MMOL/L (99-107); CREATININE 1.52 MG/DL (0.60-1.10); GLUCOSE 87 MG/DL (70-104); POTASSIUM 4.4 MMOL/L (3.5-5.1); SODIUM 145 MMOL/L (135-145); TOTAL PROTEIN 5.9 G/DL (6.4-8.2); eGFR 45 ML/MIN
[2021-01-10 08:12] LABS: TOTAL CARBON DIOXIDE 40.8 MMOL/L (24-32)
[2021-01-10] MEDS: furosemide 40mg/4ml inj IV SCH (08:25)
[2021-01-10] MEDS: pantoprazole 40mg Tablet.DR PO SCH (08:25)
[2021-01-10] MEDS: apixaban 5mg tablet PO SCH ×2 (08:26→20:27)
[2021-01-10] MEDS: amiodarone 200mg tablet PO SCH ×2 (08:26→20:27)
[2021-01-10] MEDS: lactobacillus rhamnosus 10,000 MMU CELLS/CAPSULE PO SCH ×2 (08:26→20:27)
[2021-01-10] MEDS: celeCOXIB 100mg capsule PO SCH ×2 (08:26→20:27)
[2021-01-10] MEDS: oxyCODONE IR 5mg (immed. release) tablet PO PRN (09:24)
[2021-01-10] MEDS: ROPIVAcaine 0.2%/PF PUMP/bolus 545 ML ADDCANAL SCH (10:57)
[2021-01-10 11:00] VITALS: BP 86/65
[2021-01-10 15:00] VITALS: BP 98/56
[2021-01-10] MEDS: predniSONE 20 mg tablet PO SCH (16:21)
[2021-01-10 18:00] VITALS: BP 128/64
--- NOTE | 2021-01-10 18:06 | NUR ---
Problems reprioritized. Patient report given, questions answered & plan of care reviewed with Arya RN. Patient resting in bed wright removed at 1640 patient has not voided Arya is aware. Patient in no acute distress at this time. Bipap was put on right after breakfast and removed again right before dinner to help lower CO2.
[2021-01-10] MEDS: atorvastatin 20mg tablet PO SCH (20:26)
[2021-01-10] MEDS: losartan 50mg tablet PO SCH (20:26)
[2021-01-10] MEDS: metoprolol succinate 25mg (24-HOUR) SR. Tablet PO SCH (20:26)
[2021-01-10] MEDS: sennosides 8.6mg tablet PO SCH (20:27)
[2021-01-10] MEDS: furosemide 20 MG/2 ML vial IV SCH (20:27)
[2021-01-10] MEDS: acetaZOLAMIDE 250mg tablet PO SCH (20:27)
[2021-01-10 22:00] VITALS: BP 118/65
[2021-01-11] MEDS: oxyCODONE IR 5mg (immed. release) tablet PO PRN ×3 (00:25→17:20)
[2021-01-11 02:00] VITALS: BP 94/54
[2021-01-11] MEDS: ipratropium/albuterol 3ml nebule NEB SCH ×6 (02:38→23:03)
[2021-01-11 06:00] VITALS: BP 98/54
[2021-01-11] MEDS: lactobacillus rhamnosus 10,000 MMU CELLS/CAPSULE PO SCH ×2 (07:43→21:17)
[2021-01-11] MEDS: apixaban 5mg tablet PO SCH ×2 (07:43→21:17)
[2021-01-11] MEDS: acetaZOLAMIDE 250mg tablet PO SCH ×2 (07:43→20:00)
[2021-01-11] MEDS: pantoprazole 40mg Tablet.DR PO SCH (07:44)
[2021-01-11] MEDS: amiodarone 200mg tablet PO SCH ×2 (07:44→21:17)
[2021-01-11] MEDS: celeCOXIB 100mg capsule PO SCH (07:44)
[2021-01-11] MEDS: furosemide 20 MG/2 ML vial IV SCH ×2 (07:44→20:00)
[2021-01-11] MEDS: predniSONE 20 mg tablet PO SCH (07:44)
[2021-01-11] MEDS: piperacillin/tazo 3.375gm/50ml 50 ML IV SCH ×2 (07:44→16:00)
[2021-01-11 09:11] LABS: BASOPHILS % (AUTO) 0.2 % (0-1); EOSINOPHILS # (AUTO) 0.6 X10'3 (0-0.9); EOSINOPHILS % (AUTO) 5.4 % (0-6); HEMATOCRIT 32.3 % (42.0-52.0); HEMOGLOBIN 10.2 g/dl (14.0-17.9); LYMPHOCYTES # (AUTO) 0.4 X10'3 (1.1-4.8); LYMPHOCYTES % (AUTO) 3.9 % (21-51); MEAN CORPUSCULAR HEMOGLOBIN 31.6 PG (27.0-31.0); MEAN CORPUSCULAR HGB CONC 31.6 g/dL (33.0-36.5); MEAN CORPUSCULAR VOLUME 99.8 FL (78-98); MEAN PLATELET VOLUME 8.4 FL (7.4-10.4); MONOCYTES # (AUTO) 0.7 X10'3 (0-0.9); MONOCYTES % (AUTO) 6.4 % (2-12); NEUTROPHILS # (AUTO) 9.4 X10'3 (1.8-7.7); NEUTROPHILS % (AUTO) 84.1 % (42-75); PLATELET COUNT 307 X10'3 (140-440); RED BLOOD COUNT 3.24 X10'6 (4.70-6.10); RED CELL DISTRIBUTION WIDTH 15.5 % (11.5-14.5); WHITE BLOOD COUNT 11.1 X10'3 (4.5-11.0)
[2021-01-11 09:24] LABS: ALANINE AMINOTRANSFERASE 43 U/L (12-78); ALBUMIN 2.3 G/DL (3.4-5.0); ALBUMIN/GLOBULIN RATIO 0.6 (1.1-1.5); ALKALINE PHOSPHATASE 73 IU/L (46-116); ANION GAP 5 (8-16); ASPARTATE AMINO TRANSFERASE 35 U/L (10-37); BILIRUBIN,TOTAL 0.7 MG/DL (0.1-1.0); BLOOD UREA NITROGEN 55 MG/DL (7-18); BUN/CREATININE RATIO 35.9 (5.4-32.0); CALCIUM 8.5 MG/DL (8.5-10.1); CHLORIDE 103 MMOL/L (99-107); CREATININE 1.53 MG/DL (0.60-1.10); GLUCOSE 129 MG/DL (70-104); POTASSIUM 4.5 MMOL/L (3.5-5.1); SODIUM 144 MMOL/L (135-145); TOTAL CARBON DIOXIDE 35.9 MMOL/L (24-32); eGFR 45 ML/MIN
[2021-01-11 09:32] LABS: PLATELET ESTIMATE NORMAL
[2021-01-11 09:33] LABS: BURR CELLS FEW; ELLIPTOCYTES FEW; POLYCHROMASIA FEW; SCHISTOCYTES FEW
--- NOTE | 2021-01-11 11:08 | NUR ---
PATIENT HAS BEEN BLEEDING FROM INCISION SITE, TALKED TO WOUND CARE MANAS WHO CAME AND READDRESSED DRESSING AND APPLY PRESSURED ON IT HE ALSO TALKED TO JOESPH FLAHERTY WHO IS OUT OF TOWN SHE INDICATED SHE WILL FIND OUT WHO IS COVERING SO THAT SOMEONE CAN COME AND EVALUATE PATIENT BLEEDING HAS OF NOW THERE HAS BEEN NO MORE BLEEDING AT THIS TIME.
[2021-01-11 11:47] VITALS: BP 97/41
[2021-01-11] MEDS ORDERED: celeCOXIB 100mg capsule PO PRN (15:30)
[2021-01-11] MEDS: LORazepam 2 mg/ml vial IV PRN (16:00)
[2021-01-11 17:33] VITALS: BP 92/61
--- NOTE | 2021-01-11 17:37 | NUR ---
PAGER ID: [phone] MESSAGE: IS [place] PCU PATIENT IN 4982M MELANIE LINDA IS GETTING COMBATIVE AGAIN AND I JUST GAVE HIM ATIVAN ONE HOUR AGO AND DIDNT HELP THANKS ]
[2021-01-11] MEDS ORDERED: ziprasidone IM 20mg inj **IM only IM ONE (17:45)
[2021-01-11 20:00] VITALS: BP 92/62
[2021-01-11] MEDS: metoprolol succinate 25mg (24-HOUR) SR. Tablet PO SCH (21:00)
[2021-01-11] MEDS: sennosides 8.6mg tablet PO SCH (21:12)
[2021-01-11] MEDS: atorvastatin 20mg tablet PO SCH (21:12)
[2021-01-11] MEDS: losartan 50mg tablet PO SCH (21:12)
[2021-01-12] MEDS: piperacillin/tazo 3.375gm/50ml 50 ML IV SCH ×2 (00:19→07:35)
[2021-01-12] MEDS: ipratropium/albuterol 3ml nebule NEB SCH ×6 (03:39→23:19)
[2021-01-12 06:00] VITALS: BP 102/57
--- NOTE | 2021-01-12 06:05 | NUR ---
Patient in room PCU 3012. I have received report from Rayray GUNN and had the opportunity to ask questions and assume patient care.
[2021-01-12] MEDS: furosemide 20 MG/2 ML vial IV SCH ×2 (07:35→19:32)
[2021-01-12] MEDS: acetaZOLAMIDE 250mg tablet PO SCH ×2 (07:36→19:32)
[2021-01-12] MEDS: amiodarone 200mg tablet PO SCH ×2 (07:36→19:32)
[2021-01-12] MEDS: lactobacillus rhamnosus 10,000 MMU CELLS/CAPSULE PO SCH ×2 (07:36→19:32)
[2021-01-12] MEDS: predniSONE 20 mg tablet PO SCH (07:36)
[2021-01-12] MEDS: apixaban 5mg tablet PO SCH ×2 (07:37→19:32)
[2021-01-12 08:00] LABS: ALANINE AMINOTRANSFERASE 43 U/L (12-78); ALBUMIN 2.4 G/DL (3.4-5.0); ALBUMIN/GLOBULIN RATIO 0.6 (1.1-1.5); ALKALINE PHOSPHATASE 71 IU/L (46-116); ANION GAP 5 (8-16); ASPARTATE AMINO TRANSFERASE 34 U/L (10-37); BILIRUBIN,TOTAL 0.9 MG/DL (0.1-1.0); BLOOD UREA NITROGEN 45 MG/DL (7-18); BUN/CREATININE RATIO 35.4 (5.4-32.0); CALCIUM 8.9 MG/DL (8.5-10.1); CHLORIDE 105 MMOL/L (99-107); CREATININE 1.27 MG/DL (0.60-1.10); GLUCOSE 83 MG/DL (70-104); SODIUM 142 MMOL/L (135-145); TOTAL CARBON DIOXIDE 32.2 MMOL/L (24-32); TOTAL PROTEIN 6.1 G/DL (6.4-8.2); eGFR 55 ML/MIN
[2021-01-12 08:39] LABS: BASOPHILS % (AUTO) 0.1 % (0-1); EOSINOPHILS # (AUTO) 0.7 X10'3 (0-0.9); EOSINOPHILS % (AUTO) 6.4 % (0-6); HEMATOCRIT 33.3 % (42.0-52.0); HEMOGLOBIN 10.6 g/dl (14.0-17.9); LYMPHOCYTES # (AUTO) 0.6 X10'3 (1.1-4.8); LYMPHOCYTES % (AUTO) 5.5 % (21-51); MEAN CORPUSCULAR HEMOGLOBIN 31.5 PG (27.0-31.0); MEAN CORPUSCULAR HGB CONC 31.9 g/dL (33.0-36.5); MEAN CORPUSCULAR VOLUME 98.9 FL (78-98); MEAN PLATELET VOLUME 8.8 FL (7.4-10.4); MONOCYTES # (AUTO) 1.1 X10'3 (0-0.9); MONOCYTES % (AUTO) 9.3 % (2-12); NEUTROPHILS % (AUTO) 78.7 % (42-75); PLATELET COUNT 314 X10'3 (140-440); RED BLOOD COUNT 3.36 X10'6 (4.70-6.10); RED CELL DISTRIBUTION WIDTH 15.5 % (11.5-14.5); WHITE BLOOD COUNT 11.5 X10'3 (4.5-11.0)
[2021-01-12 09:08] LABS: ELLIPTOCYTES FEW; PLATELET ESTIMATE NORMAL; POLYCHROMASIA FEW; SCHISTOCYTES FEW; TOTAL CELLS COUNTED 100
[2021-01-12 09:09] LABS: BURR CELLS 1+
[2021-01-12 11:00] VITALS: BP 95/54
--- NOTE | 2021-01-12 12:16 | NUR ---
Pt alert and oriented today. Pt is following commands and being compliant with nursing care and plan of care. Pt currently working with physical therapy and being compliant.
[2021-01-12 15:00] VITALS: BP 96/54
--- NOTE | 2021-01-12 16:16 | NUR ---
PAGER ID: [phone] MESSAGE: [id number]: Iraj Groves: Pt tolerated clear liquids well. Insulin gtt stopped at 1400. Says he is hungry. What can we advance him to for dinner? Full liquid or Adv to regular ? Omar Nagy RN [phone]
[2021-01-12 18:00] VITALS: BP 111/67
--- NOTE | 2021-01-12 18:20 | NUR ---
Problems reprioritized. Patient report given, questions answered & plan of care reviewed with Mary Ellen GUNN.
--- NOTE | 2021-01-12 18:24 | NUR ---
Patient in room PCU 3012. I have received report from VELIA Ochoa and had the opportunity to ask questions and assume patient care.
--- NOTE | 2021-01-12 19:17 | NUR ---
Spoke with Dr. Fontaine. He is OK with pt being discharged to rehab tomorrow. Addendum: 01/12/21 at 1919 by Mary Ellen Pierce RN Says to continue wound vac for another week; change every 3 days.
[2021-01-12] MEDS: losartan 50mg tablet PO SCH (20:54)
[2021-01-12] MEDS: atorvastatin 20mg tablet PO SCH (20:54)
[2021-01-12] MEDS: metoprolol succinate 25mg (24-HOUR) SR. Tablet PO SCH ×2 (20:55→21:06)
[2021-01-12] MEDS: sennosides 8.6mg tablet PO SCH (21:00)
--- NOTE | 2021-01-12 21:04 | NUR ---
Dropped one tab of metoprolol on floor. Called pharmacy to let them know. Pulled one additional tab to complete dose.
[2021-01-12 22:00] VITALS: BP 128/88
[2021-01-13 02:00] VITALS: BP 100/69
[2021-01-13] MEDS: ipratropium/albuterol 3ml nebule NEB SCH ×6 (03:12→22:59)
--- NOTE | 2021-01-13 05:59 | NUR ---
Problems reprioritized. Patient report given, questions answered & plan of care reviewed with VELIA Ochoa.
[2021-01-13 06:00] VITALS: BP 109/60
--- NOTE | 2021-01-13 06:10 | NUR ---
Patient in room PCU 3012. I have received report from Mary Ellen GUNN and had the opportunity to ask questions and assume patient care.
[2021-01-13 07:13] LABS: BASOPHILS % (AUTO) 0.1 % (0-1); EOSINOPHILS # (AUTO) 0.6 X10'3 (0-0.9); HEMATOCRIT 33.2 % (42.0-52.0); HEMOGLOBIN 10.8 g/dl (14.0-17.9); LYMPHOCYTES # (AUTO) 0.6 X10'3 (1.1-4.8); LYMPHOCYTES % (AUTO) 5.1 % (21-51); MEAN CORPUSCULAR HEMOGLOBIN 31.9 PG (27.0-31.0); MEAN CORPUSCULAR HGB CONC 32.5 g/dL (33.0-36.5); MEAN CORPUSCULAR VOLUME 98.3 FL (78-98); MEAN PLATELET VOLUME 8.6 FL (7.4-10.4); MONOCYTES # (AUTO) 0.9 X10'3 (0-0.9); MONOCYTES % (AUTO) 8.1 % (2-12); NEUTROPHILS % (AUTO) 81.7 % (42-75); PLATELET COUNT 373 X10'3 (140-440); RED BLOOD COUNT 3.37 X10'6 (4.70-6.10); RED CELL DISTRIBUTION WIDTH 15.7 % (11.5-14.5)
[2021-01-13] MEDS: furosemide 20 MG/2 ML vial IV SCH ×2 (07:29→20:13)
[2021-01-13] MEDS: predniSONE 20 mg tablet PO SCH (07:29)
[2021-01-13] MEDS: lactobacillus rhamnosus 10,000 MMU CELLS/CAPSULE PO SCH ×2 (07:30→20:12)
[2021-01-13] MEDS: apixaban 5mg tablet PO SCH ×2 (07:30→20:12)
[2021-01-13] MEDS: amiodarone 200mg tablet PO SCH ×2 (07:30→20:12)
[2021-01-13] MEDS: acetaZOLAMIDE 250mg tablet PO SCH (07:30)
[2021-01-13 07:37] LABS: ALANINE AMINOTRANSFERASE 44 U/L (12-78); ALBUMIN 2.5 G/DL (3.4-5.0); ALBUMIN/GLOBULIN RATIO 0.6 (1.1-1.5); ALKALINE PHOSPHATASE 75 IU/L (46-116); ANION GAP 6 (8-16); ASPARTATE AMINO TRANSFERASE 26 U/L (10-37); BILIRUBIN,TOTAL 0.7 MG/DL (0.1-1.0); BLOOD UREA NITROGEN 40 MG/DL (7-18); BUN/CREATININE RATIO 29.4 (5.4-32.0); CALCIUM 8.9 MG/DL (8.5-10.1); CHLORIDE 103 MMOL/L (99-107); CREATININE 1.36 MG/DL (0.60-1.10); GLUCOSE 92 MG/DL (70-104); POTASSIUM 3.8 MMOL/L (3.5-5.1); SODIUM 142 MMOL/L (135-145); TOTAL CARBON DIOXIDE 32.6 MMOL/L (24-32); TOTAL PROTEIN 6.4 G/DL (6.4-8.2); eGFR 51 ML/MIN
[2021-01-13 08:15] LABS: ANISOCYTOSIS 1+; ELLIPTOCYTES FEW; HYPOCHROMASIA 1+; PLATELET ESTIMATE NORMAL; POLYCHROMASIA 1+; TOTAL CELLS COUNTED 100
[2021-01-13 08:16] LABS: BURR CELLS FEW
[2021-01-13 11:00] VITALS: BP 95/65
[2021-01-13 15:00] VITALS: BP 108/75
[2021-01-13 18:00] VITALS: BP 113/61
--- NOTE | 2021-01-13 18:10 | NUR ---
Problems reprioritized. Patient report given, questions answered & plan of care reviewed with Mary Ellen GUNN.
--- NOTE | 2021-01-13 18:15 | NUR ---
Patient in room PCU 3012. I have received report from VELIA Ochoa and had the opportunity to ask questions and assume patient care.
[2021-01-13] MEDS: metoprolol succinate 25mg (24-HOUR) SR. Tablet PO SCH (20:12)
[2021-01-13] MEDS: atorvastatin 20mg tablet PO SCH (20:12)
[2021-01-13] MEDS: sennosides 8.6mg tablet PO SCH (20:21)
[2021-01-13] MEDS: losartan 50mg tablet PO SCH (20:24)
--- NOTE | 2021-01-13 20:24 | NUR ---
Barcode ripped slightly and would not scan. 3 med checks done before administering.
[2021-01-14] MEDS: LORazepam 2 mg/ml vial IV PRN (00:01)
--- NOTE | 2021-01-14 00:04 | NUR ---
Pt confused, agitated. Keeps removing bi-pap, trying to get out of bed, and threatening to leave. Administered PRN ativan
--- NOTE | 2021-01-14 00:15 | NUR ---
Pt increasingly agitated and confused. Pt threatening staff. Called Dr. Cavanaugh and got a one time dose of Haldol IM 5mg.
[2021-01-14] MEDS ORDERED: haloperidol lactate 5mg/ml inj IM ONE (00:20)
[2021-01-14] MEDS ORDERED: OLANZapine **IM** 10 mg inj. IM ONE (02:40)
--- NOTE | 2021-01-14 02:40 | NUR ---
Pt still very agitated and confused. Pt keeps attempting to remove bi-pap and trying to get up out of bed. Tried reorienting, distracting, and listening to pt. These interventions were unsuccessful. Called Dr. Cavanaugh and got an order for soft wrist restraints and a one time dose of Zyprexa IM 5 mg.
[2021-01-14] MEDS: ipratropium/albuterol 3ml nebule NEB SCH ×6 (02:56→23:05)
[2021-01-14 04:00] VITALS: BP 103/54
--- NOTE | 2021-01-14 06:20 | NUR ---
Problems reprioritized. Patient report given, questions answered & plan of care reviewed with VELIA Valentine.
--- NOTE | 2021-01-14 06:33 | NUR ---
Patient in room PCU 3012. I have received report from VELIA Hyde and had the opportunity to ask questions and assume patient care.
[2021-01-14 06:44] LABS: EOSINOPHILS # (AUTO) 0.5 X10'3 (0-0.9); HEMOGLOBIN 10.5 g/dl (14.0-17.9); MEAN PLATELET VOLUME 8.4 FL (7.4-10.4)
[2021-01-14 06:47] LABS: BASOPHILS % (AUTO) 0.1 % (0-1); EOSINOPHILS % (AUTO) 3.6 % (0-6); HEMATOCRIT 32.2 % (42.0-52.0); LYMPHOCYTES # (AUTO) 0.7 X10'3 (1.1-4.8); MEAN CORPUSCULAR HEMOGLOBIN 31.9 PG (27.0-31.0); MEAN CORPUSCULAR HGB CONC 32.5 g/dL (33.0-36.5); MEAN CORPUSCULAR VOLUME 98.2 FL (78-98); MONOCYTES # (AUTO) 1.3 X10'3 (0-0.9); MONOCYTES % (AUTO) 10.2 % (2-12); NEUTROPHILS # (AUTO) 10.5 X10'3 (1.8-7.7); NEUTROPHILS % (AUTO) 81.1 % (42-75); PLATELET COUNT 388 X10'3 (140-440); RED BLOOD COUNT 3.27 X10'6 (4.70-6.10); RED CELL DISTRIBUTION WIDTH 15.2 % (11.5-14.5)
[2021-01-14 07:00] VITALS: BP 80/61
[2021-01-14 07:11] LABS: ALANINE AMINOTRANSFERASE 48 U/L (12-78); ALBUMIN 2.6 G/DL (3.4-5.0); ALBUMIN/GLOBULIN RATIO 0.7 (1.1-1.5); ALKALINE PHOSPHATASE 79 IU/L (46-116); ANION GAP 9 (8-16); ASPARTATE AMINO TRANSFERASE 24 U/L (10-37); BILIRUBIN,TOTAL 0.9 MG/DL (0.1-1.0); BLOOD UREA NITROGEN 43 MG/DL (7-18); BUN/CREATININE RATIO 29.1 (5.4-32.0); CHLORIDE 102 MMOL/L (99-107); CREATININE 1.48 MG/DL (0.60-1.10); GLUCOSE 96 MG/DL (70-104); POTASSIUM 3.8 MMOL/L (3.5-5.1); SODIUM 141 MMOL/L (135-145); TOTAL PROTEIN 6.5 G/DL (6.4-8.2); eGFR 46 ML/MIN
[2021-01-14] MEDS: amiodarone 200mg tablet PO SCH ×2 (07:34→20:12)
[2021-01-14] MEDS: apixaban 5mg tablet PO SCH ×2 (07:34→20:15)
[2021-01-14] MEDS: furosemide 20 MG/2 ML vial IV SCH ×2 (07:34→20:15)
[2021-01-14] MEDS: lactobacillus rhamnosus 10,000 MMU CELLS/CAPSULE PO SCH ×2 (07:34→20:15)
[2021-01-14] MEDS ORDERED: predniSONE 20 mg tablet PO SCH (08:00)
[2021-01-14 11:00] VITALS: BP 102/54
--- NOTE | 2021-01-14 13:43 | NUR ---
notified. PAGER ID: [phone] MESSAGE: Re:: Yohan, Tino. [id number]. Patient's blood pressure has been soft over the last hour or so. map in the mid 50's/high 40's. Last BP 94/47 (58). Complaining of right lower back pain /, worsening over last week. Thanks. Meme. 8485.
[2021-01-14 18:00] VITALS: BP 117/71
--- NOTE | 2021-01-14 18:03 | NUR ---
Preceptee documentation: I have reviewed and agree with all interventions, assessments performed and documented by VELIA Tello. Preceptee Medication Administration: For this medication-pass time frame, all medication were reviewed, dispensed, administered and documented per hospital policy by VELIA Tello.
--- NOTE | 2021-01-14 18:03 | NUR ---
Patient in room PCU 3012. I have received report from VELIA Valentine and had the opportunity to ask questions and assume patient care.
--- NOTE | 2021-01-14 18:03 | NUR ---
Problems reprioritized. Patient report given, questions answered & plan of care reviewed with VELIA Frank.
--- NOTE | 2021-01-14 18:09 | NUR ---
Problems reprioritized. Patient report given, questions answered & plan of care reviewed with VELIA Lee.
[2021-01-14] MEDS: oxyCODONE IR 5mg (immed. release) tablet PO PRN (18:28)
--- NOTE | 2021-01-14 18:47 | NUR ---
Patient in room PCU 3012. I have received report from VELIA Valentine and had the opportunity to ask questions and assume patient care.
[2021-01-14] MEDS: doxycycline inj 100 MG in normal saline 100ml IV soln 100 ML IV SCH (20:12)
[2021-01-14] MEDS: sennosides 8.6mg tablet PO SCH (20:15)
[2021-01-14] MEDS: metoprolol succinate 25mg (24-HOUR) SR. Tablet PO SCH (20:16)
[2021-01-14] MEDS: atorvastatin 20mg tablet PO SCH (20:16)
[2021-01-14] MEDS: losartan 50mg tablet PO SCH (20:17)
--- NOTE | 2021-01-14 20:39 | NUR ---
Page sent to Respiratory: RE: Tino Almanzar [id number]: Can you please bring a new Gecko? Thanks! Mary Ellen [phone]
[2021-01-15] MEDS: oxyCODONE IR 5mg (immed. release) tablet PO PRN ×2 (01:56→20:36)
[2021-01-15] MEDS: ipratropium/albuterol 3ml nebule NEB SCH ×6 (02:24→23:04)
[2021-01-15 03:48] VITALS: BP 88/59
[2021-01-15 06:00] VITALS: BP 80/51
--- NOTE | 2021-01-15 06:15 | NUR ---
Problems reprioritized. Patient report given, questions answered & plan of care reviewed with VELIA Bush.
--- NOTE | 2021-01-15 06:30 | NUR ---
Patient in room PCU 3012. I have received report from Mary Ellen GUNN and had the opportunity to ask questions and assume patient care.
[2021-01-15 07:36] LABS: BASOPHILS % (AUTO) 0.2 % (0-1); EOSINOPHILS # (AUTO) 0.3 X10'3 (0-0.9); EOSINOPHILS % (AUTO) 2.4 % (0-6); HEMATOCRIT 31.9 % (42.0-52.0); HEMOGLOBIN 10.3 g/dl (14.0-17.9); LYMPHOCYTES # (AUTO) 0.6 X10'3 (1.1-4.8); LYMPHOCYTES % (AUTO) 4.6 % (21-51); MEAN CORPUSCULAR HEMOGLOBIN 31.8 PG (27.0-31.0); MEAN CORPUSCULAR HGB CONC 32.4 g/dL (33.0-36.5); MEAN CORPUSCULAR VOLUME 98.1 FL (78-98); MEAN PLATELET VOLUME 8.7 FL (7.4-10.4); MONOCYTES # (AUTO) 1.5 X10'3 (0-0.9); MONOCYTES % (AUTO) 11.8 % (2-12); NEUTROPHILS # (AUTO) 10.3 X10'3 (1.8-7.7); PLATELET COUNT 369 X10'3 (140-440); RED BLOOD COUNT 3.25 X10'6 (4.70-6.10); RED CELL DISTRIBUTION WIDTH 16.1 % (11.5-14.5); WHITE BLOOD COUNT 12.7 X10'3 (4.5-11.0)
[2021-01-15 07:46] LABS: ALANINE AMINOTRANSFERASE 39 U/L (12-78); ALBUMIN 2.4 G/DL (3.4-5.0); ALBUMIN/GLOBULIN RATIO 0.6 (1.1-1.5); ALKALINE PHOSPHATASE 76 IU/L (46-116); ANION GAP 6 (8-16); ASPARTATE AMINO TRANSFERASE 20 U/L (10-37); BILIRUBIN,TOTAL 0.8 MG/DL (0.1-1.0); BLOOD UREA NITROGEN 49 MG/DL (7-18); BUN/CREATININE RATIO 30.8 (5.4-32.0); CALCIUM 8.8 MG/DL (8.5-10.1); CHLORIDE 104 MMOL/L (99-107); CREATININE 1.59 MG/DL (0.60-1.10); GLUCOSE 95 MG/DL (70-104); SODIUM 141 MMOL/L (135-145); TOTAL CARBON DIOXIDE 30.9 MMOL/L (24-32); TOTAL PROTEIN 6.2 G/DL (6.4-8.2); eGFR 43 ML/MIN
[2021-01-15] MEDS: apixaban 5mg tablet PO SCH ×2 (08:33→19:19)
[2021-01-15] MEDS: amiodarone 200mg tablet PO SCH ×2 (08:33→19:19)
[2021-01-15] MEDS: lactobacillus rhamnosus 10,000 MMU CELLS/CAPSULE PO SCH ×2 (08:33→19:19)
[2021-01-15] MEDS: furosemide 20 MG/2 ML vial IV SCH (08:33)
[2021-01-15] MEDS: doxycycline inj 100 MG in normal saline 100ml IV soln 100 ML IV SCH ×2 (08:33→19:19)
[2021-01-15 08:59] LABS: TOTAL CELLS COUNTED 100
[2021-01-15 09:01] LABS: ANISOCYTOSIS 1+; ELLIPTOCYTES FEW; PLATELET ESTIMATE NORMAL; POLYCHROMASIA FEW; STOMATOCYTES FEW
--- NOTE | 2021-01-15 10:08 | NUR ---
Paged Dr. Khalil PAGER ID: [phone] MESSAGE: [id number] Tino Almanzar. Manual blood pressure 88/48 (61). U Crystal
[2021-01-15] MEDS: acetaminophen 325mg tablet PO PRN (10:39)
[2021-01-15 11:00] VITALS: BP 90/57
--- NOTE | 2021-01-15 12:03 | NUR ---
Reassessment: Pt PO continues to fluctuate mostly ~75% avg regular diet w/ occasional decline to 25-50% receiving double proteins TIDWM overall likely meeting minimum nutrient needs. LBM 5/7 receiving routine senna. Will continue to monitor for additional protein/kcal needs post-op. Rec: 1. continue regular diet; double eggs WB/double meats BIDLD; encourage PO 2. consider heart healthy diet as medically indicated given hx CHF/HTN, and serum Na 141 w/ +2 edema present 3. routine bowel care 4. weekly wts Addendum: 01/15/21 at [address] Amended: Links added.
--- NOTE | 2021-01-15 13:21 | NUR ---
Paged Dr. Khalil PAGER ID: [phone] MESSAGE: [id number] Tino Almanzar. Blood pressure 72/47 MAP 54, recheck manually 83/58 MAP 66. [facility] Crystal
--- NOTE | 2021-01-15 14:07 | NUR ---
Paged Dr. Khalil PAGER ID: [phone] MESSAGE: [id number] Tino Almanzar. BP manually 48 MAP 57. [facility] Crystal
--- NOTE | 2021-01-15 14:30 | NUR ---
Bolus 250 ml normal saline.
--- NOTE | 2021-01-15 14:45 | NUR ---
Bolus 250ml normal saline again per .
[2021-01-15 15:00] VITALS: BP 86/45
--- NOTE | 2021-01-15 15:00 | NUR ---
Patient BP 86/45 MAP 55. Bolus 250ml again.
--- NOTE | 2021-01-15 15:25 | NUR ---
Manual BP 80/56 MAP 64
--- NOTE | 2021-01-15 16:00 | NUR ---
Blood pressure 88/66 MAP 71.
[2021-01-15 18:00] VITALS: BP 96/57
--- NOTE | 2021-01-15 18:16 | NUR ---
Problems reprioritized. Patient report given, questions answered & plan of care reviewed with Laura GUNN. Patient stable at transfer of care.
[2021-01-15] MEDS: atorvastatin 20mg tablet PO SCH (19:19)
[2021-01-15] MEDS: sennosides 8.6mg tablet PO SCH (19:19)
--- NOTE | 2021-01-15 21:08 | NUR ---
Patient in room PCU 3012. I have received report from Taryn GUNN and had the opportunity to ask questions and assume patient care.
[2021-01-15 22:00] VITALS: BP 111/42
[2021-01-16 02:00] VITALS: BP 124/61
[2021-01-16] MEDS: ipratropium/albuterol 3ml nebule NEB SCH ×6 (02:37→23:53)
[2021-01-16] MEDS: oxyCODONE IR 5mg (immed. release) tablet PO PRN ×2 (02:44→09:57)
[2021-01-16 06:00] VITALS: BP 111/91
--- NOTE | 2021-01-16 06:12 | NUR ---
Problems reprioritized. Patient report given, questions answered & plan of care reviewed with Taryn GUNN.
--- NOTE | 2021-01-16 06:23 | NUR ---
Patient in room PCU 3012. I have received report from Radha GUNN and had the opportunity to ask questions and assume patient care.
[2021-01-16 07:42] LABS: BASOPHILS # (AUTO) 0.1 X10'3 (0-0.2); BASOPHILS % (AUTO) 0.3 % (0-1); EOSINOPHILS # (AUTO) 0.1 X10'3 (0-0.9); EOSINOPHILS % (AUTO) 0.6 % (0-6); HEMATOCRIT 29.9 % (42.0-52.0); HEMOGLOBIN 9.4 g/dl (14.0-17.9); LYMPHOCYTES # (AUTO) 0.5 X10'3 (1.1-4.8); MEAN CORPUSCULAR HEMOGLOBIN 31.3 PG (27.0-31.0); MEAN CORPUSCULAR HGB CONC 31.6 g/dL (33.0-36.5); MEAN CORPUSCULAR VOLUME 99.1 FL (78-98); MONOCYTES # (AUTO) 2.2 X10'3 (0-0.9); MONOCYTES % (AUTO) 12.8 % (2-12); NEUTROPHILS % (AUTO) 83.3 % (42-75); PLATELET COUNT 278 X10'3 (140-440); RED BLOOD COUNT 3.01 X10'6 (4.70-6.10); RED CELL DISTRIBUTION WIDTH 16.1 % (11.5-14.5); WHITE BLOOD COUNT 16.9 X10'3 (4.5-11.0)
[2021-01-16 07:45] LABS: ALANINE AMINOTRANSFERASE 30 U/L (12-78); ALBUMIN 2.2 G/DL (3.4-5.0); ALBUMIN/GLOBULIN RATIO 0.6 (1.1-1.5); ALKALINE PHOSPHATASE 79 IU/L (46-116); ANION GAP 8 (8-16); ASPARTATE AMINO TRANSFERASE 18 U/L (10-37); BLOOD UREA NITROGEN 60 MG/DL (7-18); BUN/CREATININE RATIO 31.4 (5.4-32.0); CALCIUM 8.6 MG/DL (8.5-10.1); CHLORIDE 103 MMOL/L (99-107); CREATININE 1.91 MG/DL (0.60-1.10); GLUCOSE 97 MG/DL (70-104); POTASSIUM 4.2 MMOL/L (3.5-5.1); SODIUM 138 MMOL/L (135-145); TOTAL CARBON DIOXIDE 27.5 MMOL/L (24-32); eGFR 35 ML/MIN
[2021-01-16] MEDS: lactobacillus rhamnosus 10,000 MMU CELLS/CAPSULE PO SCH ×2 (08:04→19:25)
[2021-01-16] MEDS: amiodarone 200mg tablet PO SCH ×2 (08:04→19:25)
[2021-01-16] MEDS: doxycycline inj 100 MG in normal saline 100ml IV soln 100 ML IV SCH ×2 (08:04→19:25)
[2021-01-16] MEDS: apixaban 5mg tablet PO SCH ×2 (08:04→19:26)
[2021-01-16 09:14] LABS: TOTAL CELLS COUNTED 100
[2021-01-16 09:16] LABS: ANISOCYTOSIS 1+; ELLIPTOCYTES 1+; HYPOCHROMASIA 1+; PLATELET ESTIMATE NORMAL; POLYCHROMASIA 1+
[2021-01-16 11:00] VITALS: BP 88/52
[2021-01-16 15:00] VITALS: BP 128/49
[2021-01-16] MEDS: dextrose 5%-water 1,000 ML IV SCH (16:39)
[2021-01-16 18:00] VITALS: BP 120/49
--- NOTE | 2021-01-16 18:00 | NUR ---
Patient in room PCU 3012. I have received report from Taryn GUNN and had the opportunity to ask questions and assume patient care.
--- NOTE | 2021-01-16 18:27 | NUR ---
Problems reprioritized. Patient report given, questions answered & plan of care reviewed with Laura GUNN.
[2021-01-16] MEDS: sennosides 8.6mg tablet PO SCH (19:26)
[2021-01-16] MEDS: atorvastatin 20mg tablet PO SCH (19:26)
[2021-01-16] MEDS: acetaminophen 325mg tablet PO PRN (19:27)
[2021-01-16 22:00] VITALS: BP 95/60
[2021-01-17] VITALS (8 sets, daily range): BP systolic 88–162; BP diastolic 48–89
[2021-01-17] MEDS: oxyCODONE IR 5mg (immed. release) tablet PO PRN ×2 (02:08→08:48)
[2021-01-17] MEDS: ipratropium/albuterol 3ml nebule NEB SCH ×6 (02:31→23:16)
[2021-01-17] MEDS: acetaminophen 325mg tablet PO PRN (04:34)
--- NOTE | 2021-01-17 06:25 | NUR ---
Problems reprioritized. Patient report given, questions answered & plan of care reviewed with Taryn GUNN.
--- NOTE | 2021-01-17 06:29 | NUR ---
Patient in room PCU 3012. I have received report from Anastasia GUNN and had the opportunity to ask questions and assume patient care.
[2021-01-17 07:35] LABS: BASOPHILS % (AUTO) 0.3 % (0-1); EOSINOPHILS # (AUTO) 0.1 X10'3 (0-0.9); EOSINOPHILS % (AUTO) 0.7 % (0-6); HEMATOCRIT 26.5 % (42.0-52.0); HEMOGLOBIN 8.6 g/dl (14.0-17.9); LYMPHOCYTES # (AUTO) 0.4 X10'3 (1.1-4.8); LYMPHOCYTES % (AUTO) 2.6 % (21-51); MEAN CORPUSCULAR HEMOGLOBIN 31.8 PG (27.0-31.0); MEAN CORPUSCULAR HGB CONC 32.5 g/dL (33.0-36.5); MEAN CORPUSCULAR VOLUME 97.7 FL (78-98); MEAN PLATELET VOLUME 8.9 FL (7.4-10.4); MONOCYTES # (AUTO) 1.9 X10'3 (0-0.9); MONOCYTES % (AUTO) 13.7 % (2-12); NEUTROPHILS # (AUTO) 11.7 X10'3 (1.8-7.7); NEUTROPHILS % (AUTO) 82.7 % (42-75); PLATELET COUNT 273 X10'3 (140-440); RED BLOOD COUNT 2.71 X10'6 (4.70-6.10); RED CELL DISTRIBUTION WIDTH 15.5 % (11.5-14.5); WHITE BLOOD COUNT 14.2 X10'3 (4.5-11.0)
[2021-01-17] MEDS: apixaban 5mg tablet PO SCH ×2 (07:41→20:05)
[2021-01-17] MEDS: amiodarone 200mg tablet PO SCH (07:41)
[2021-01-17] MEDS: lactobacillus rhamnosus 10,000 MMU CELLS/CAPSULE PO SCH ×2 (07:41→20:18)
[2021-01-17 08:07] LABS: ALANINE AMINOTRANSFERASE 30 U/L (12-78); ALBUMIN/GLOBULIN RATIO 0.5 (1.1-1.5); ALKALINE PHOSPHATASE 88 IU/L (46-116); ANION GAP 9 (8-16); ASPARTATE AMINO TRANSFERASE 21 U/L (10-37); BLOOD UREA NITROGEN 67 MG/DL (7-18); BUN/CREATININE RATIO 29.4 (5.4-32.0); CALCIUM 8.3 MG/DL (8.5-10.1); CHLORIDE 101 MMOL/L (99-107); CREATININE 2.28 MG/DL (0.60-1.10); GLUCOSE 112 MG/DL (70-104); SODIUM 135 MMOL/L (135-145); TOTAL PROTEIN 5.8 G/DL (6.4-8.2); eGFR 28 ML/MIN
[2021-01-17] MEDS: doxycycline inj 100 MG in normal saline 100ml IV soln 100 ML IV SCH ×2 (08:24→20:05)
--- NOTE | 2021-01-17 08:44 | NUR ---
Paged Dr. Avila regarding heart rate PAGER ID: [phone] MESSAGE: [id number] Tino Almanzar. Heart rate 130s-140s. [facility] Crystal
[2021-01-17] MEDS: LORazepam 2 mg/ml vial IV PRN (08:55)
--- NOTE | 2021-01-17 09:16 | NUR ---
Paged Dr. Avila regarding heart rate PAGER ID: [phone] MESSAGE: [id number] Tino Almanzar. Heart rate 120s-150s. Blood pressure is 135/64 MAP 83. PCU Crystal
--- NOTE | 2021-01-17 10:29 | NUR ---
Paged Dr. Avila regarding heart rate. PAGER ID: [phone] MESSAGE: [id number] Tino Almanzar. Heart rate 130-140s. U Crystal
[2021-01-17] MEDS ORDERED: metoprolol tartrate 1mg/ml inj IV ONE (11:40)
[2021-01-17] MEDS ORDERED: metoprolol tartrate 50mg tablet PO ONE ×2 (11:45→20:00)
--- NOTE | 2021-01-17 12:05 | NUR ---
gave metoprolol IV 5MG and metoprolol 100mg PO one time per Dr. Avila order. Patient is to start metoprolol 100mg daily in the mornings per Dr. Avila.
[2021-01-17] MEDS: dextrose 5%-water 1,000 ML IV SCH (13:41)
--- NOTE | 2021-01-17 15:25 | NUR ---
Paged Dr. Avila PAGER ID: [phone] MESSAGE: [id number] Tino Almanzar. Can we order an ABG? PCU Crystal
[2021-01-17 15:54] LABS: ABG BASE EXCESS -2.1 mmol/L (-2.0-2.0); ABG OXYGEN SATURATION 96.9 % (94-97); ABG PCO2 (T) 40.7 mmHg (35.0-48.0); ABG PO2 (T) 92.3 mmHg (75.0-100.0); ALLEN'S TEST POSITIVE; FCOHb 0.9 % (0.0-3.9); FMetHb 0.1 % (0.0-1.5); FO2Hb 95.9 % (94-97); PATIENT TEMPERATURE 37.1; RESPIRATORY RATE 18 b/min; TOTAL HEMOGLOBIN 10.1 G/dl (14.0-18.0)
--- NOTE | 2021-01-17 17:10 | NUR ---
Paged Dr. Avila PAGER ID: [phone] MESSAGE: [id number] Tino Almanzar. Bladder scan 1423ml. Can I place wright KVNG ? PCU Crystal
--- NOTE | 2021-01-17 17:30 | NUR ---
Paged Dr. Avila regarding wright PAGER ID: [phone] MESSAGE: Tino Mcdonald. Can I place a wright cath for retention?? FABIOLA Centeno
[2021-01-17 17:52] LABS: CLARITY,URINE CLEAR (Clear); COLOR,URINE YELLOW (Yellow); GLUCOSE, URINE NEGATIVE (Neg); KETONES,URINE NEGATIVE (Neg); LEUKOCYTE ESTERASE ,URINE NEGATIVE (Neg); NITRITES, URINE NEGATIVE (Neg); OCCULT BLOOD,URINE MODERATE (Neg); PROTEIN,URINE NEGATIVE (Neg); UROBILINOGEN,URINE 0.2 E.U/dL (0.2-1.0)
[2021-01-17 17:56] LABS: UA COLLECTION TYPE FOLEY CATH
[2021-01-17 17:58] LABS: BACTERIA,URINE FEW /HPF (Neg); RBC,URINE 0-2 /HPF (0-2); SQUAMOUS EPITHELIAL CELL,UR FEW /LPF (FEW); WBC,URINE 0-4 /HPF (0-4)
--- NOTE | 2021-01-17 18:26 | NUR ---
Problems reprioritized. Patient report given, questions answered & plan of care reviewed with Anastasia GUNN. Patient stable at transfer of care.
[2021-01-17] MEDS: sennosides 8.6mg tablet PO SCH (20:06)
[2021-01-17] MEDS: atorvastatin 20mg tablet PO SCH (20:06)
[2021-01-18 02:00] VITALS: BP 110/70
[2021-01-18] MEDS: ipratropium/albuterol 3ml nebule NEB SCH ×4 (03:05→11:13)
[2021-01-18] MEDS: acetaminophen 325mg tablet PO PRN ×2 (04:11→10:54)
--- NOTE | 2021-01-18 06:32 | NUR ---
Problems reprioritized. Patient report given, questions answered & plan of care reviewed with Rosamaria GUNN.
--- NOTE | 2021-01-18 06:58 | NUR ---
Patient in room U 3012. I have received report from Rosa GUNN and had the opportunity to ask questions and assume patient care. Pt supine in bed, HOB at 30 degrees, Bipap in place at 28%FIO2, pt endorses mild pain to neck, spo2 100%, though RR mildly elevated. pt alert to voice. SRx2, CL within reach, BLL. Addendum: 01/18/21 at 0706 by Rosamaria Pierce RN Report received from Laura GUNN not Rosa GUNN.
[2021-01-18 07:00] VITALS: BP 138/74
[2021-01-18] MEDS ORDERED: metoprolol tartrate 50mg tablet PO SCH (08:00)
[2021-01-18] MEDS ORDERED: digoxin 125mcg (0.125mg) tablet PO SCH (08:00)
[2021-01-18] MEDS ORDERED: metoprolol succinate 25mg (24-HOUR) SR. Tablet PO SCH (08:00)
[2021-01-18] MEDS: lactobacillus rhamnosus 10,000 MMU CELLS/CAPSULE PO SCH (08:55)
[2021-01-18] MEDS: doxycycline inj 100 MG in normal saline 100ml IV soln 100 ML IV SCH (08:55)
[2021-01-18] MEDS: apixaban 5mg tablet PO SCH (08:55)
[2021-01-18] MEDS: dextrose 5%-water 1,000 ML IV SCH (10:55)
[2021-01-18 11:00] VITALS: BP 129/59
[2021-01-18] MEDS ORDERED: OXYC-658 PO (11:16)
[2021-01-18 11:46] LABS: ALBUMIN 1.8 G/DL (3.4-5.0); ANION GAP 5 (8-16); BLOOD UREA NITROGEN 63 MG/DL (7-18); BUN/CREATININE RATIO 30.1 (5.4-32.0); CALCIUM 8.4 MG/DL (8.5-10.1); CHLORIDE 103 MMOL/L (99-107); CREATININE 2.09 MG/DL (0.60-1.10); GLUCOSE 110 MG/DL (70-104); POTASSIUM 4.2 MMOL/L (3.5-5.1); SODIUM 136 MMOL/L (135-145); TOTAL CARBON DIOXIDE 28.1 MMOL/L (24-32); eGFR 31 ML/MIN
--- NOTE | 2021-01-18 12:38 | NUR ---
Dr. Avila to unit Dr. Avila to PCU to see patient. CXR prior to discharge ordered.
[2021-01-18] MEDS: oxyCODONE IR 5mg (immed. release) tablet PO PRN (14:04)
--- NOTE | 2021-01-18 14:50 | NUR ---
Pt stable for transfer to [facility] per MD orders. Report called to Luis GUNN at [facility]. all questions answered. Pt discharge with PIV 20 G to RUE. telemetry discontinued. belongings collected and sent with pt. pt transferred to [facility] with assist from ambulance staff and left unit on [facility] to go to [facility] via ambulance.
== END 2021-01-18 14:50 | DRG 469 ==
LOC: PAS IN 01-03 07:51 → UNDOADMIN 01-03 07:51 → EDSTATUS 01-03 10:15 → PAS IN 01-03 14:07 → ORTHO 4S 01-03 15:30 → PAS IN 01-03 15:30 → ORTHO 4S 01-03 17:30 → PCU 3S 01-03 17:30
PROVIDERS: ADMIT Orthopaedic Surgery; ATTEND Orthopaedic Surgery
PROC: 8E0YXCZ Robotic Assisted Procedure of Lower Extremity (ICD-10-PCS; 2021-01-03)
PROC: 8E0YXBZ Computer Assisted Procedure of Lower Extremity (ICD-10-PCS; 2021-01-03)
PROC: 3E0T3BZ Introduction of Anesthetic Agent into Peripheral Nerves and Plexi, Percutaneous Approach (ICD-10-PCS; 2021-01-03)
PROC: 3E0T33Z Introduction of Anti-inflammatory into Peripheral Nerves and Plexi, Percutaneous Approach (ICD-10-PCS; 2021-01-03)
PROC: 0SRC0J9 Replacement of Right Knee Joint with Synthetic Substitute, Cemented, Open Approach (ICD-10-PCS; principal; 2021-01-03 10:52)
PROC: 5A09357 Assistance with Respiratory Ventilation, Less than 24 Consecutive Hours, Continuous Positive Airway Pressure (ICD-10-PCS; 2021-01-04)
PROC: B32T1ZZ Computerized Tomography (CT Scan) of Left Pulmonary Artery using Low Osmolar Contrast (ICD-10-PCS; 2021-01-04)
PROC: B3201ZZ Computerized Tomography (CT Scan) of Thoracic Aorta using Low Osmolar Contrast (ICD-10-PCS; 2021-01-04)
PROC: B32S1ZZ Computerized Tomography (CT Scan) of Right Pulmonary Artery using Low Osmolar Contrast (ICD-10-PCS; 2021-01-04)
PROC: 5A09357 Assistance with Respiratory Ventilation, Less than 24 Consecutive Hours, Continuous Positive Airway Pressure (ICD-10-PCS; 2021-01-05)
PROC: 5A09357 Assistance with Respiratory Ventilation, Less than 24 Consecutive Hours, Continuous Positive Airway Pressure (ICD-10-PCS; 2021-01-07)
PROC: 5A09357 Assistance with Respiratory Ventilation, Less than 24 Consecutive Hours, Continuous Positive Airway Pressure (ICD-10-PCS; 2021-01-08)
PROC: 5A09357 Assistance with Respiratory Ventilation, Less than 24 Consecutive Hours, Continuous Positive Airway Pressure (ICD-10-PCS; 2021-01-09)
PROC: 5A09357 Assistance with Respiratory Ventilation, Less than 24 Consecutive Hours, Continuous Positive Airway Pressure (ICD-10-PCS; 2021-01-11)
PROC: 5A09357 Assistance with Respiratory Ventilation, Less than 24 Consecutive Hours, Continuous Positive Airway Pressure (ICD-10-PCS; 2021-01-12)
PROC: 5A09357 Assistance with Respiratory Ventilation, Less than 24 Consecutive Hours, Continuous Positive Airway Pressure (ICD-10-PCS; 2021-01-13)
PROC: 5A09357 Assistance with Respiratory Ventilation, Less than 24 Consecutive Hours, Continuous Positive Airway Pressure (ICD-10-PCS; 2021-01-14)
PROC: 5A09357 Assistance with Respiratory Ventilation, Less than 24 Consecutive Hours, Continuous Positive Airway Pressure (ICD-10-PCS; 2021-01-15)
PROC: 5A09357 Assistance with Respiratory Ventilation, Less than 24 Consecutive Hours, Continuous Positive Airway Pressure (ICD-10-PCS; 2021-01-16)
PROC: 5A09357 Assistance with Respiratory Ventilation, Less than 24 Consecutive Hours, Continuous Positive Airway Pressure (ICD-10-PCS; 2021-01-17)
DX: M17.11 Unilateral primary osteoarthritis, right knee (principal); J96.01 Acute respiratory failure with hypoxia; J96.02 Acute respiratory failure with hypercapnia; G93.41 Metabolic encephalopathy; E87.2 Acidosis; I13.0 Hypertensive heart and chronic kidney disease with heart failure and stage 1 through stage 4 chronic kidney disease, or unspecified chronic kidney disease; J44.1 Chronic obstructive pulmonary disease with (acute) exacerbation; L03.115 Cellulitis of right lower limb; N17.9 Acute kidney failure, unspecified; Z68.41 Body mass index [BMI] 40.0-44.9, adult; E66.2 Morbid (severe) obesity with alveolar hypoventilation; D64.9 Anemia, unspecified; E78.5 Hyperlipidemia, unspecified; E86.0 Dehydration; I25.10 Atherosclerotic heart disease of native coronary artery without angina pectoris; Z20.822 Contact with and (suspected) exposure to COVID-19; I48.0 Paroxysmal atrial fibrillation; I95.9 Hypotension, unspecified; I34.0 Nonrheumatic mitral (valve) insufficiency; M54.9 Dorsalgia, unspecified; I50.9 Heart failure, unspecified; K21.9 Gastro-esophageal reflux disease without esophagitis; N18.9 Chronic kidney disease, unspecified; Z79.899 Other long term (current) drug therapy; Z82.49 Family history of ischemic heart disease and other diseases of the circulatory system; Z86.711 Personal history of pulmonary embolism; Z79.01 Long term (current) use of anticoagulants; R00.0 Tachycardia, unspecified; Z78.1 Physical restraint status
CPT/HCPCS: 93306; Z7506; Z7508; 36415; 36600; 71045; 71046; 71275; 80048; 80053; 80202; 81001; 82803; 82948; 83605; 83735; 83880; 84100; 84145; 84443; 84484; 85007; 85008; 85018; 85025; 85027; 85379; 85610; 85730; 87040; 87081; 87426; 93005; 93970; 93971; 94640; 94660; 94760; 97110; 97116; 97161; 97530; 97535; A4215; A6258; A7000; C1713; C1758; C1776; G0378; J0690; J1200; J1630; J1885; J1940; J2060; J2250; J2370; J2543; J2704; J2795; J2920; J2930; J3010; J3370; J3480; J3486; J3490; J7030; J7040; J7070; J7120; J7512; Q0163; Q9967